=== PATIENT | male | born 1975 | race Caucasian/White ===

== ENCOUNTER → 2018-09-26 | Outpatient (CLI) | payer OTHER ==
--- NOTE | 2018-09-26 11:42 | XR ---
EXAMINATION TYPE: XR foot complete RT DATE OF EXAM: 09/26/2018 CLINICAL HISTORY: First metatarsal phalangeal joint pain and great toe pain after kicking a heavy obj ect. TECHNIQUE: Frontal, lateral, and oblique images of the right foot are obtained. COMPARISON: None FINDINGS: There is no acute fracture/dislocation evident in the right foot. The joint spaces in the right foot appear within normal limits. Small plantar enthesophyte is noted. The overlying soft tis sues demonstrate multiple punctate radiopaque foreign bodies. The first is located within the medial subcutaneous tissues distal to the first distal phalanx tuft measuring 2 mm. The second is located la teral to the fourth proximal phalanx also measuring 2 mm, this is seen at the plantar surface. IMPRESSION: There is no acute fracture or dislocation in the right foot. 2 punctate radiopaque forei gn bodies as described above adjacent to the first distal phalanx and fourth proximal phalanx.
== END ==
LOC: RADXRYALE 09:34
PROVIDERS: ATTEND Internal Medicine
DX: M79.671 Pain in right foot (principal)

== ENCOUNTER → 2020-03-11 | Outpatient (CLI) | payer BC ==
[2020-03-11 13:01] LABS: HCT 42.1 % (39.0-53.0); HGB 14.6 gm/dL (13.0-17.5); MCH 31.2 pg (25.0-35.0); MCHC 34.6 g/dL (31.0-37.0); Mean Platelet Volume 9.8; Platelet Count 147 k/uL (150-450); RBC 4.68 m/uL (4.30-5.90); RDW 13.5 % (11.5-15.5); WBC 5.3 k/uL (3.8-10.6)
== END | disposition home or self-care (01) ==
LOC: LABWHC1 12:07
PROVIDERS: ATTEND Surgery Plastic and Reconstructive Surgery
DX: Z01.818 Encounter for other preprocedural examination (principal)
CPT/HCPCS: 36415; 85027

== ENCOUNTER 2020-03-13 14:21 | Day surgery (SDC) | payer BC, OTHER ==
[2020-03-09 16:02] VITALS: BMI 38.0
--- NOTE | 2020-03-13 12:13 | P.GSHP ---
History of Present Illness H&P Date: 03/13/20 CHIEF COMPLAINT: Ventral hernia HISTORY OF PRESENT ILLNESS: The patient is a 44-year-old male who presents with a history of swelling and pain along the abdomen from a hernia. Now he presents for surgical intervention. PAST MEDICAL HISTORY: Please see list. PAST SURGICAL HISTORY: Please see list. MEDICATIONS: Please see list. ALLERGIES: Please see list. SOCIAL HISTORY: No illicit drug use FAMILY HISTORY: No reports of Crohn disease or ulcerative colitis. REVIEW OF ORGAN SYSTEMS: CONSTITUTIONAL: No reports of fevers or chills. No reports of weight loss despite prior attempts. GI: Denies any blood in stools or constipation. PHYSICAL EXAM: VITAL SIGNS: Stable GENERAL: Well-developed pleasant male in no acute distress. HEENT: No scleral icterus. Extraocular movements grossly intact. Moist buccal mucosa. NECK: Supple without lymphadenopathy. CHEST: Unlabored respirations. Equal bilateral excursions. CARDIOVASCULAR: Regular rate and rhythm. Distal 2+ pulses. ABDOMEN: Soft, nondistended. Palpable defect of the abdomen. No peritoneal signs. MUSCULOSKELETAL: No clubbing, cyanosis, or edema. ASSESSMENT: 1. Ventral hernia PLAN: 1. Recommend proceeding with robotic ventral hernia repair with mesh. 2. Benefits and risks of surgical intervention was discussed including possibility of open technique. 3. DVT prophylaxis. 4. Antibiotic prophylaxis. Past Medical History Past Medical History: GERD/Reflux Additional Past Medical History / Comment(s): hx stomach ulcers, hx septal heart defect with surgery as child., Hernia. History of Any Multi-Drug Resistant Organisms: None Reported Past Surgical History: Hernia Repair Additional Past Surgical History / Comment(s): inguinal hernia, septal heart defect surgery as child. Past Anesthesia/Blood Transfusion Reactions: No Reported Reaction Past Psychological History: No Psychological Hx Reported Smoking Status: Former smoker Past Alcohol Use History: Daily Additional Past Alcohol Use History / Comment(s): quit smoking 2005, smoked 10 years, smoked 1 ppd. drinks 2 drinks daily. Past Drug Use History: None Reported - Past Family History Mother Family Medical History: No Reported History Medications and Allergies Home Medications Medication Instructions Recorded Confirmed Type Aspirin [Adult Low Dose Aspirin EC] 81 mg PO DAILY 03/09/20 03/09/20 History Atorvastatin [Lipitor] 40 mg PO DAILY 03/09/20 03/09/20 History Ibuprofen [Motrin Ib] 400 mg PO DIRECTED PRN 03/09/20 03/09/20 History Losartan [Cozaar] 50 mg PO DAILY 03/09/20 03/09/20 History Omeprazole 20 mg PO DAILY 03/09/20 03/09/20 History gemfibroziL [Lopid] 600 mg PO BID 03/09/20 03/09/20 History Allergies Allergy/AdvReac Type Severity Reaction Status Date / Time No Known Allergies Allergy Verified 03/09/20 15:29
[~2020-03-13 14:21] MED LIST: ACETAMINOPHEN TAB 500 MG TAB PO ONE; ACETAMINOPHEN TAB 500 MG TAB PO STA; DEXAMETHASONE SOD PHOSPHATE 10 MG/ML 1 ML VIAL IV ONE; GABAPENTIN 300 MG CAP PO STA; HEPARIN SODIUM,PORCINE 5,000 UNIT/ML 1 ML VIAL SQ ONE; LACTATED RINGERS 1,000 ML IV SCH; LIDOCAINE 1% (10MG/ML) FOR IV START INTRADERMA PRN; ONDANSETRON 4 MG/2 ML VIAL IVP ONE; TAMSULOSIN 0.4 MG CAP.ER.24H PO STA; ceFAZolin 3 GM in SODIUM CHLORIDE 0.9% 100 ML IVPB ONE
[2020-03-13 14:36] VITALS: RESP 16
[2020-03-13 15:02] LABS: Basophils % (A) 1 %; Eosinophils # (A) 0.1 k/uL (0-0.7); Eosinophils % (A) 3 %; HCT 44.8 % (39.0-53.0); HGB 15.4 gm/dL (13.0-17.5); Lymphocytes # (A) 1.7 k/uL (1.0-4.8); Lymphocytes % (A) 34 %; MCHC 34.4 g/dL (31.0-37.0); MCV 90.1 fL (80.0-100.0); Mean Platelet Volume 10.2; Monocytes # (A) 0.4 k/uL (0-1.0); Monocytes % (A) 7 %; Neutrophils # (A) 2.6 k/uL (1.3-7.7); Neutrophils % (A) 53 %; Platelet Count 155 k/uL (150-450); RBC 4.98 m/uL (4.30-5.90); RDW 13.6 % (11.5-15.5); WBC 4.9 k/uL (3.8-10.6)
[2020-03-13 15:13] LABS: ALT 40 U/L (4-49); AST 37 U/L (17-59); African American GFR (CKD) >90 (>60 ml/min/1.73 sqM); Albumin 4.7 g/dL (3.5-5.0); Alkaline Phosphatase 73 U/L (38-126); Anion Gap 11 mmol/L; Blood Urea Nitrogen 14 mg/dL (9-20); Carbon Dioxide 24 mmol/L (22-30); Chloride 105 mmol/L (98-107); Glucose 101 mg/dL (74-99); Non-African American GFR(CKD) >90 (>60 ml/min/1.73 sqM); Sodium 140 mmol/L (137-145); Total Bilirubin 0.6 mg/dL (0.2-1.3); Total Protein 7.7 g/dL (6.3-8.2)
[2020-03-13] MEDS ORDERED: MIDAZOLAM 2 MG/2 ML VIAL IV ONE (15:21)
--- NOTE | 2020-03-13 15:34 | P.ANPRN ---
Procedure Note - Anesthesia - Nerve Block Performed Bilateral Transversus Abdominis Single Time Out Performed: Yes Date of Procedure: 03/13/20 Procedure Start Time: 15:29 Procedure Stop Time: 15: Location of Patient: PreOp Indication: Acute Post-Operative Pain, Requested by Surgeon Sedation Type: Sedate with meaningful contact maintained Preparation: Sterile Prep Position: Supine Catheter: None Needle Types: Pajunk Needle Gauge: 21 Ultrasound used to visualize needle placement: Yes Ultrasound used to observe medication spread: Yes Injectate: 0.5% Ropivacaine (see comment for volume) (30 ml (15 ml on each side) plus 4 mg pf decadron 2 mg on each side) Blood Aspirated: No Pain Paresthesia on Injection Noted: No Resistance on Injection: Normal Image Stored and Saved: Yes Events: Uneventful and Well Tolerated
[2020-03-13 15:35] LABS: Cholesterol 168 mg/dL (<200); HDL Cholesterol 41 mg/dL (40-60); LDL Cholesterol,Calculated 93 mg/dL (0-99); Triglycerides 172 mg/dL (<150)
[2020-03-13] MEDS ORDERED: ROPIVACAINE 5 MG/ML 30 ML VIAL ONE (17:02)
[2020-03-13] MEDS ORDERED: PROPOFOL 10 MG/ML 20 ML VIAL IV ONE (17:02)
[2020-03-13] MEDS ORDERED: LIDOCAINE 1% INJ 10MG/ML (20 ML MDV) ONE (17:02)
[2020-03-13] MEDS ORDERED: ROCURONIUM 10 MG/ML (10 ML VIAL) IV ONE (17:02)
[2020-03-13] MEDS ORDERED: KETOROLAC 15 MG/ML 1 ML VIAL ONE (17:02)
[2020-03-13] MEDS ORDERED: NEOSTIGMINE 1 MG/ML 10 ML VIAL ONE (17:02)
[2020-03-13] MEDS ORDERED: MIDAZOLAM 2 MG/2 ML VIAL ONE (17:02)
[2020-03-13] MEDS ORDERED: DEXAMETHASONE SOD PHOSPHATE 4 MG/ML 1 ML VIAL ONE (17:02)
[2020-03-13] MEDS ORDERED: GLYCOPYRROLATE 0.2 MG/ML 2 ML VIAL ONE (17:02)
[2020-03-13] MEDS ORDERED: fentaNYL (PF) 50 MCG/ML 2 ML AMP ONE (17:02)
[2020-03-13] MEDS ORDERED: SUCCINYLCHOLINE CHLORIDE 100 MG/5 ML SYR IV ONE (17:02)
[2020-03-13] MEDS ORDERED: BUPIVACAINE (PF) 0.25% 30 ML VIAL SQ ONE (17:25)
[2020-03-13] MEDS ORDERED: LACTATED RINGERS 1,000 ML IV ONE (17:26)
[2020-03-13 18:36] VITALS: TEMP 97.7
[2020-03-13] MEDS: HYDROmorphone 0.5 MG/0.5 ML SYRINGE IVP PRN ×2 (18:38→18:40)
--- NOTE | 2020-03-13 19:04 | P.OP ---
Date of Procedure: 03/13/20 Description of Procedure: SURGEON: JIHAN CORTEZ MD PREOPERATIVE DIAGNOSES: 1. Initial umbilical hernia with incarceration 2. Diabetes type 2, non-insulin dependent 3. Morbid obesity due to excess calories, BMI 37.0 4. Congenital septal heart defect 5. Hyperlipidemia 6. Gastroesophageal reflux disease POSTOPERATIVE DIAGNOSES: 1. Initial umbilical hernia with incarceration, 2 cm 2. Diabetes type 2, non-insulin dependent 3. Morbid obesity due to excess calories, BMI 37.0 4. Congenital septal heart defect 5. Hyperlipidemia 6. Gastroesophageal reflux disease 7. Recurrent incarcerated epigastric hernia, 3 cm, epigastrium OPERATION: 1. Robotic-assisted da [employer] Xi laparoscopic repair of recurrent incarcerated epigastric hernia, 3 cm, without mesh 2. Robotic-assisted da [employer] Xi laparoscopic repair of initial incarcerated umbilical hernia 2 cm without mesh ANESTHESIA: General with local ESTIMATED BLOOD LOSS: 5 mL. SPECIMENS: Incarcerated hernia sacs 2 COMPLICATIONS: None. FINDINGS: 1. Initial incarcerated umbilical hernia containing preperitoneal fat, 2 cm reduced and repaired 2. Recurrent incarcerated epigastric hernia, 3 cm also reduced and repaired with closure of falciform peritoneum INDICATIONS: The patient is a 44-year-old male who presents with initial umbilical hernia. He has previous history of epigastric ventral hernia repair. Surgical intervention with laparoscopic versus robotic and open techniques were reviewed. Placement of mesh was also reviewed. Benefits and risks were thoroughly described. Informed consent was obtained. DESCRIPTION OF PROCEDURE: The patient was brought into the operating room and laid in supine position. After general induction, the abdomen had been prepped and draped in standard sterile fashion. Ioban draping was also placed. Prior to incision, a timeout protocol was confirmed with surgical team regarding the patient's name including procedures to be performed. The robot was primed prior to the procedure. A field block using local anesthetic was placed along hernia site including the proposed port sites. Initial incision was made with an #11 blade along the left upper quadrant. A 0 degree 5 mm laparoscopic trocar entry was performed. Diagnostic laparoscopy demonstrated an incarcerated umbilical hernia. Three 8 mm trocars were placed along the left lateral abdominal wall. Placements of the ports were 15 cm from the target anatomy and 9 cm apart. The [employer] robot was previously primed, prepped and draped then docked along the right side of the patient. I then sat at the robot Da Gene Xi console where working arms of the robot were scissors, needle maintenance truck driver, and graspers placed by the personal banking assistant. An laparoscopic 12 mm port was placed along the left subxiphoid. Attention was brought to the umbilicus where an incarcerated umbilical hernia was identified containing preperitoneal fat. The incarcerated contents was reduced as the peritoneal fat was cleaned from the abdominal wall. Next, hemostasis was checked with cautery. The hernia defect of 2-cm was oversewn using nonabsorbable #1 VLOC with fascial imbrication 3. At the epigastrium, recurrent hernia at his prior hernia repair site was found with incarcerated falciform ligament. The preperitoneal fat including falciform ligament were stripped identifying 2 distinct recurrent hernias at the epigastric site totaling 3 cm in size. The incarcerated contents were reduced as the peritoneal fat was cleaned from the abdominal wall. Next, hemostasis was checked with cautery. The hernia defect of 3-cm was oversewn using nonabsorbable #1 VLOC with fascial imbrication 3. The falciform ligament site was oversewn and closed. A final endoscopic imaging was obtained. All instruments and pneumoperitoneum were evacuated from the abdominal cavity. The [employer] Xi robot was undocked from the patient. I re-scrubbed into the case for closure of incisions. Specimens were removed using an Endo Catch bag, 10 mm. The incisions were reapproximated using 4-0 Monocryl in an interrupted subcuticular fashion. Exofin liquid glue was applied to the skin after cleansing the skin with normal saline and dilute hydrogen peroxide. An abdominal binder was placed. An umbilical dressing using 4 x 4 and Tegaderm was placed. An abdominal binder was placed. At the end of the procedure, needle, sponge, and instrument count had been verified correct by surgical appliance fitter. The patient was taken to the postanesthesia care unit in stable condition. His family was pleased with the level of care. Plan - Discharge Summary Discharge Rx Participant: No New Discharge Prescriptions: New Naproxen [Naprosyn] 250 mg PO TID PRN #30 tab PRN Reason: Pain Acetaminophen Tab [Tylenol Tab] 1,000 mg PO Q6HR PRN #30 tablet PRN Reason: Pain Continue gemfibroziL [Lopid] 600 mg PO BID Losartan [Cozaar] 50 mg PO DAILY Atorvastatin [Lipitor] 40 mg PO DAILY Omeprazole 20 mg PO DAILY Aspirin [Adult Low Dose Aspirin EC] 81 mg PO DAILY Discontinued Ibuprofen [Motrin Ib] 400 mg PO DIRECTED PRN PRN Reason: Pain Discharge Medication List Aspirin [Adult Low Dose Aspirin EC] 81 mg PO DAILY 03/09/20 [History] Atorvastatin [Lipitor] 40 mg PO DAILY 03/09/20 [History] Losartan [Cozaar] 50 mg PO DAILY 03/09/20 [History] Omeprazole 20 mg PO DAILY 03/09/20 [History] gemfibroziL [Lopid] 600 mg PO BID 03/09/20 [History] Acetaminophen Tab [Tylenol Tab] 1,000 mg PO Q6HR PRN #30 tablet 03/13/20 [Rx] Naproxen [Naprosyn] 250 mg PO TID PRN #30 tab 03/13/20 [Rx] Follow up Appointment(s)/Referral(s): Jihan Cortez MD [STAFF PHYSICIAN] - 03/24/20 Patient Instructions/Handouts: *[facility] - Managing Your Pain After Surgery Without Opioids, Laparoscopic Herniorrhaphy (IP), Abdominal Binder (DC), Umbilical Hernia Repair (GEN) Activity/Diet/Wound Care/Special Instructions: Wear abdominal binder at all times except for showering No lifting over 4 pounds in 4 weeks until April 13October shower. No bath tub soaks for 2 weeks until March 27 Diet as tolerated. Use Tylenol and ibuprofen scheduled for the next 24-48 hours for best pain relief. Use ice along incisions for the today to prevent swelling. Discharge Disposition: HOME SELF-CARE
[2020-03-13] MEDS ORDERED: ACETAMINOPHEN TAB 500 MG TAB ONE (19:21)
[2020-03-13 19:40] VITALS: BP 146/85; PULSE 78
[2020-03-14 00:19] LABS: Hemoglobin A1C 5.8 % (4.0-6.0)
== END 2020-03-13 20:06 | disposition home or self-care (01) ==
LOC: OR 14:21
PROVIDERS: ATTEND Surgery Plastic and Reconstructive Surgery
DX: K42.0 Umbilical hernia with obstruction, without gangrene (principal); K43.0 Incisional hernia with obstruction, without gangrene; E78.2 Mixed hyperlipidemia; G47.33 Obstructive sleep apnea (adult) (pediatric); K21.9 Gastro-esophageal reflux disease without esophagitis; Q21.1 Atrial septal defect; E66.01 Morbid (severe) obesity due to excess calories; Z79.82 Long term (current) use of aspirin; Z79.899 Other long term (current) drug therapy; Z68.37 Body mass index [BMI] 37.0-37.9, adult; Z98.890 Other specified postprocedural states; Z87.11 Personal history of peptic ulcer disease; Z87.891 Personal history of nicotine dependence
CPT/HCPCS: 64488; 80061; 80053; 84443; 85025; 82306; 83036; 49657; 49653; J2250; J1644; J1100 ×2; J2710; J0690; J2405; J2001; J3010; J2795; J1885; J0330; J2704; J1170; 88302

== ENCOUNTER 2020-08-14 18:36 | Emergency (ER) | payer BC ==
[2020-08-14] MEDS ORDERED: guaiFENesin-DM 600/30MG 1 EACH TAB.ER.12H PO STA (19:01)
[2020-08-14] MEDS ORDERED: ACETAMINOPHEN TAB 500 MG TAB PO STA (19:01)
--- NOTE | 2020-08-14 19:29 | XR ---
EXAMINATION TYPE: XR chest 1V portable DATE OF EXAM: 08/14/2020 COMPARISON: NONE HISTORY: Cough and fever TECHNIQUE: Single view FINDINGS: Heart and mediastinum are normal. Lungs are clear. Diaphragm is normal. Bony thorax appears normal. IMPRESSION: Normal chest.
--- NOTE | 2020-08-14 19:45 | ED ---
URI HPI - General Chief Complaint: Upper Respiratory Infection Stated Complaint: Fever/no taste or smell Time Seen by Provider: 08/14/20 18:55 Source: patient Limitations: no limitations - History of Present Illness Initial Comments: 44-year-old male patient presents to the emergency department today for evaluation of cough, fever, body aches. Patient states symptoms started a couple of days ago with a dry persistent cough. States today he lost taste and smell. States he also developed a temperature at home was elevated at 102F. States he did take some ibuprofen which seemed to help. Denies any sputum production or hemoptysis. Denies chest pain. Denies significant shortness of breath. She did have an episode of vomiting this morning. Denies any diarrhea. Denies history of smoking. Denies underlying lung conditions. Patient denies any recent rash, abdominal pain, constipation, back pain, numbness, tingling, dizziness, weakness, hematuria, dysuria, urinary urgency, urinary frequency, headache, visual changes, or any other complaints. - Related Data Home Medications Medication Instructions Recorded Confirmed Aspirin [Adult Low Dose Aspirin EC] 81 mg PO DAILY 03/09/20 03/13/20 Atorvastatin [Lipitor] 40 mg PO DAILY 03/09/20 03/13/20 Losartan [Cozaar] 50 mg PO DAILY 03/09/20 03/13/20 Omeprazole 20 mg PO DAILY 03/09/20 03/13/20 gemfibroziL [Lopid] 600 mg PO BID 03/09/20 03/13/20 Previous Rx's Medication Instructions Recorded Acetaminophen Tab [Tylenol Tab] 1,000 mg PO Q6HR PRN #30 tablet 03/13/20 Naproxen [Naprosyn] 250 mg PO TID PRN #30 tab 03/13/20 Ondansetron [Zofran ODT] 4 mg PO Q8HR PRN #10 tab 08/14/20 guaiFENesin-DM 600/30MG [Mucinex 2 each PO Q12HR PRN #20 tab.er.12h 08/14/20 Dm] Allergies Allergy/AdvReac Type Severity Reaction Status Date / Time No Known Allergies Allergy Verified 08/14/20 18:41 Review of Systems ROS Statement: Those systems with pertinent positive or pertinent negative responses have been documented in the HPI. ROS Other: All systems not noted in ROS Statement are negative. Past Medical History Past Medical History: GERD/Reflux Additional Past Medical History / Comment(s): hx stomach ulcers, hx septal heart defect with surgery as child., Hernia. History of Any Multi-Drug Resistant Organisms: None Reported Past Surgical History: Hernia Repair Additional Past Surgical History / Comment(s): inguinal hernia, septal heart defect surgery as child. Past Anesthesia/Blood Transfusion Reactions: No Reported Reaction Past Psychological History: No Psychological Hx Reported Smoking Status: Former smoker Past Alcohol Use History: Daily Past Drug Use History: None Reported - Past Family History Mother Family Medical History: No Reported History General Exam Limitations: no limitations General appearance: alert, in no apparent distress, other (Physical well- developed, well-nourished adult male patient in no acute distress. Vital signs upon presentation are temperature 101.1F oral, pulse 126, respirations 20, blood pressure 168/82, pulse ox 99% on room air.) Eye exam: Present: normal appearance, PERRL, EOMI. Absent: scleral icterus, conjunctival injection, periorbital swelling ENT exam: Present: normal exam, normal oropharynx, mucous membranes moist, TM's normal bilaterally Respiratory exam: Present: normal lung sounds bilaterally. Absent: respiratory distress, wheezes, rales, rhonchi, stridor Cardiovascular Exam: Present: normal rhythm, tachycardia, normal heart sounds. Absent: systolic murmur, diastolic murmur, rubs, gallop, clicks GI/Abdominal exam: Present: soft, normal bowel sounds. Absent: distended, tenderness, guarding, rebound, rigid Neurological exam: Present: alert, oriented X3, CN II-XII intact Psychiatric exam: Present: normal affect, normal mood Skin exam: Present: warm, dry, intact, normal color. Absent: rash Course Vital Signs 08/14/20 08/14/20 18:39 19:25 Temperature 99 F 101 F H Pulse Rate 126 H Respiratory 20 Rate Blood Pressure 168/82 O2 Sat by Pulse 99 Oximetry Medical Decision Making - Medical Decision Making 44-year-old male patient presents to the emergency department today for evaluation of dry cough, fever, chills. Did have episode of vomiting this morning. Physical examination reveals clear equal lung sounds. He was febrile upon arrival at 101.1F mildly tachycardic. Oxygen saturation is within normal range. Chest x-rays negative. He did test positive for Covid 19 on the rapid test. He was given Mucinex DM and Tylenol here. I did review results with him. He was offered bamlanivimab monoclonal antibodies. Discussed the procedure and risks. Patient refused this treatment. He was informed that he must get the infusion within 10 days. He verbalized understanding. He is given prescription for mucinex and zofran. Instructed to obtain OTC vit D, Zinc, Vit C. He is instructed to follow-up with his primary care physician for recheck in 1-2 days. Return parameters discussed in detail. He verbalizes understanding and agrees with this plan. Case discussed with my attending Dr. Bateman. - Lab Data Lab Results 08/14/20 Range/Units 19:32 Coronavirus (PCR) Detected A (Not Detectd) - Radiology Data Radiology results: report reviewed, image reviewed Interpreted by me: Went to x-ray of the chest is obtained. Report is reviewed in its entirety. Impression by Dr. Rosas shows normal chest. Disposition Clinical Impression: COVID-19 Disposition: HOME SELF-CARE Condition: Good Instructions (If sedation given, give patient instructions): Coronavirus Disease 2019 (COVID-19) Additional Instructions: Take medications as directed. Alternate Tylenol and Motrin to control fevers. Obtain pnni-rte-heayeoy vitamins including vitamin D 3, vitamin C, and zinc as he does have shown some promise and helping with symptoms. You must quarantine for a total of 10 days after symptom onset or until symptoms clear. Follow-up with your primary care physician for recheck in 1-2 days. Return to the emergency department for any new, worsening, or concerning symptoms. Prescriptions: guaiFENesin-DM 600/30MG [Mucinex Dm] 2 each PO Q12HR PRN #20 tab.er.12h PRN Reason: Cough Ondansetron [Zofran ODT] 4 mg PO Q8HR PRN #10 tab PRN Reason: Nausea Is patient prescribed a controlled substance at d/c from ED?: No Referrals: Luis Lund MD [Primary Care Provider] - 1-2 days Time of Disposition: 20:06
[2020-08-14 20:33] VITALS: BP 159/101; PULSE 104; RESP 16; TEMP 101.4
== END 2020-08-14 20:33 | disposition home or self-care (01) ==
LOC: EC 18:36
DX: U07.1 COVID-19 (principal); K21.9 Gastro-esophageal reflux disease without esophagitis; Z87.891 Personal history of nicotine dependence
CPT/HCPCS: 71045; 87635; 99283

== ENCOUNTER 2020-08-20 11:15 | Emergency (ER) | payer BC ==
[2020-08-20 11:27] VITALS: BP 112/69; TEMP 98.5
[2020-08-20 12:25] VITALS: RESP 16
--- NOTE | 2020-08-20 12:42 | ED ---
General Adult HPI - General Chief complaint: Shortness of Breath Stated complaint: revisit - Covid+, loss of appetite Time Seen by Provider: 08/20/20 11:25 Source: patient, RN notes reviewed, old records reviewed Mode of arrival: ambulatory Limitations: no limitations - History of Present Illness Initial comments: This is a 44-year-old male who presents emergency Department complaining of being diagnosed with COVID on Monday patient states symptoms started . Patient states since then he's been extremely fatigued and short of breath any exertion. Patient denies chest pain or difficulty breathing. Patient denies lightheadedness dizziness or near syncopal episode. Patient denies abdominal pain patient denies nausea vomiting diarrhea. Patient denies feeling as though he has been febrile or having the chills. Patient denies any injury or trauma. - Related Data Home Medications Medication Instructions Recorded Confirmed Aspirin [Adult Low Dose Aspirin EC] 81 mg PO DAILY 03/09/20 08/20/20 Atorvastatin [Lipitor] 40 mg PO DAILY 03/09/20 08/20/20 Omeprazole 20 mg PO DAILY 03/09/20 08/20/20 gemfibroziL [Lopid] 600 mg PO BID 03/09/20 08/20/20 Cyclobenzaprine [Flexeril] 5 - 10 mg PO HS PRN 08/20/20 08/20/20 Losartan/Hydrochlorothiazide 1 tab PO DAILY 08/20/20 08/20/20 [Losartan-Hctz 100-25 mg Tab] guaiFENesin-DM 600/30MG [Mucinex 2 tab PO Q12HR PRN 08/20/20 08/20/20 Dm] Previous Rx's Medication Instructions Recorded Ondansetron [Zofran ODT] 4 mg PO Q8HR PRN #10 tab 08/14/20 Allergies Allergy/AdvReac Type Severity Reaction Status Date / Time No Known Allergies Allergy Verified 08/20/20 12:47 Review of Systems ROS Statement: Those systems with pertinent positive or pertinent negative responses have been documented in the HPI. ROS Other: All systems not noted in ROS Statement are negative. Past Medical History Past Medical History: GERD/Reflux Additional Past Medical History / Comment(s): hx stomach ulcers, hx septal heart defect with surgery as child., Hernia. History of Any Multi-Drug Resistant Organisms: None Reported Past Surgical History: Hernia Repair Additional Past Surgical History / Comment(s): inguinal hernia, septal heart defect surgery as child. Past Anesthesia/Blood Transfusion Reactions: No Reported Reaction Past Psychological History: No Psychological Hx Reported Smoking Status: Former smoker Past Alcohol Use History: Occasional Past Drug Use History: None Reported - Past Family History Mother Family Medical History: No Reported History General Exam - General Exam Comments Initial Comments: GENERAL: Patient is well-developed and well-nourished. Patient is nontoxic and well- hydrated and is in mild distress. ENT: Neck is soft and supple. No significant lymphadenopathy is noted. Oropharynx is clear. Moist mucous membranes. Neck has full range of motion without eliciting any pain. EYES: The sclera were anicteric and conjunctiva were pink and moist. Extraocular movements were intact and pupils were equal round and reactive to light. Eyelids were unremarkable. PULMONARY: Unlabored respirations. Good breath sounds bilaterally. No audible rales rhonchi or wheezing was noted. CARDIOVASCULAR: There is a regular rate and rhythm without any murmurs gallops or rubs. ABDOMEN: Soft and nontender with normal bowel sounds. SKIN: Skin is clear with no lesions or rashes and otherwise unremarkable. NEUROLOGIC: Patient is alert and oriented x3. Cranial nerves II through XII are grossly intact. Motor and sensory are also intact. Normal speech, volume and content. Symmetrical smile. MUSCULOSKELETAL: Normal extremities with adequate strength and full range of motion. No lower extremity swelling or edema. No calf tenderness. LYMPHATICS: No significant lymphadenopathy is noted PSYCHIATRIC: Normal psychiatric evaluation. Limitations: no limitations Course Vital Signs 08/20/20 08/20/20 08/20/20 11:24 12:22 12:25 Temperature 98.5 F Pulse Rate 100 Respiratory 18 16 Rate Blood Pressure 112/69 O2 Sat by Pulse 94 L 95 Oximetry 08/20/20 12:49 Temperature Pulse Rate Respiratory Rate Blood Pressure O2 Sat by Pulse 89 L Oximetry Medical Decision Making - Medical Decision Making EKG shows sinus tachycardia at 102 bpm MA interval 282 QRS is 92 QT interval 342 QTC is 445. Patient's EKG shows no ST segment elevation or depression. Patient's x-ray shows COVID pneumonia. Patient will be getting monoclonal antibodies. Patient wants to try going home with this monoclonal antibodies in his system and if he gets worse he will return. - Lab Data Result diagrams: 08/20/20 13:04 08/20/20 13:04 Lab Results 08/20/20 08/20/20 Range/Units 13:04 13:04 WBC 8.1 (3.8-10.6) k/uL RBC 5.45 (4.30-5.90) m/uL Hgb 16.6 (13.0-17.5) gm/dL Hct 46.9 (39.0-53.0) % MCV 86.0 (80.0-100.0) fL MCH 30.4 (25.0-35.0) pg MCHC 35.4 (31.0-37.0) g/dL RDW 13.4 (11.5-15.5) % Plt Count 139 L (150-450) k/uL MPV 9.9 Neutrophils % 84 % Lymphocytes % 9 % Monocytes % 5 % Eosinophils % 0 % Basophils % 0 % Neutrophils # 6.8 (1.3-7.7) k/uL Lymphocytes # 0.7 L (1.0-4.8) k/uL Monocytes # 0.4 (0-1.0) k/uL Eosinophils # 0.0 (0-0.7) k/uL Basophils # 0.0 (0-0.2) k/uL Sodium 134 L (137-145) mmol/L Potassium 3.9 (3.5-5.1) mmol/L Chloride 95 L (98-107) mmol/L Carbon Dioxide 24 (22-30) mmol/L Anion Gap 15 mmol/L BUN 39 H (9-20) mg/dL Creatinine 1.73 H (0.66-1.25) mg/dL Est GFR (CKD-EPI)AfAm 54 (>60 ml/min/1.73 sqM) Est GFR (CKD-EPI)NonAf 47 (>60 ml/min/1.73 sqM) Glucose 130 H (74-99) mg/dL Calcium 8.3 L (8.4-10.2) mg/dL Total Bilirubin 0.9 (0.2-1.3) mg/dL AST 56 (17-59) U/L ALT 38 (4-49) U/L Alkaline Phosphatase 72 (38-126) U/L Total Protein 7.1 (6.3-8.2) g/dL Albumin 4.1 (3.5-5.0) g/dL Disposition Clinical Impression: Pneumonia due to COVID-19 virus Disposition: HOME SELF-CARE Instructions (If sedation given, give patient instructions): Coronavirus Disease 2019 (COVID-19) Is patient prescribed a controlled substance at d/c from ED?: No Referrals: Luis Lund MD [Primary Care Provider] - 1-2 days Time of Disposition: 14:24
[2020-08-20 13:23] LABS: Basophils % (A) 0 %; Eosinophils % (A) 0 %; HCT 46.9 % (39.0-53.0); HGB 16.6 gm/dL (13.0-17.5); Lymphocytes # (A) 0.7 k/uL (1.0-4.8); Lymphocytes % (A) 9 %; MCH 30.4 pg (25.0-35.0); MCHC 35.4 g/dL (31.0-37.0); Mean Platelet Volume 9.9; Monocytes # (A) 0.4 k/uL (0-1.0); Monocytes % (A) 5 %; Neutrophils # (A) 6.8 k/uL (1.3-7.7); Neutrophils % (A) 84 %; Platelet Count 139 k/uL (150-450); RBC 5.45 m/uL (4.30-5.90); RDW 13.4 % (11.5-15.5); WBC 8.1 k/uL (3.8-10.6)
[2020-08-20 13:25] LABS: Albumin 4.1 g/dL (3.5-5.0); Calcium 8.3 mg/dL (8.4-10.2); Potassium 3.9 mmol/L (3.5-5.1); Total Bilirubin 0.9 mg/dL (0.2-1.3); Total Protein 7.1 g/dL (6.3-8.2)
[2020-08-20] MEDS ORDERED: SODIUM CHLORIDE 0.9% 1,000 ML IV ONE (13:38)
--- NOTE | 2020-08-20 14:22 | XR ---
EXAMINATION TYPE: XR chest 2V DATE RECEIVED ON: 08/20/2020 DATE PERFORMED: 08/20/2020 COMPARISON: 08/14/2020 HISTORY: Difficulty breathing TECHNIQUE: Frontal and lateral views of the chest are obtained. FINDINGS: The heart size is normal. The pulmonary vasculature is normal. Nonspecific subsegmental infiltrates are present bilaterally atypical pneumonia could be considered. IMPRESSION: 1. Scattered bilateral infiltrates are nonspecific but can be compatible with atypical pneumonia in t he proper clinical setting.
[2020-08-20] MEDS ORDERED: BAMLANIVIMAB 700 MG in SODIUM CHLORIDE 0.9% 50 ML IVPB ONE (15:30)
[2020-08-20 17:46] VITALS: PULSE 91
== END 2020-08-20 17:46 | disposition home or self-care (01) ==
LOC: EC 11:15
DX: U07.1 COVID-19 (principal); J12.82 Pneumonia due to coronavirus disease 2019; K21.9 Gastro-esophageal reflux disease without esophagitis; Z87.891 Personal history of nicotine dependence
CPT/HCPCS: 36415; 93005; 80053; 85025; 71046; 99284; 96360; Q0239; 96376

== ENCOUNTER 2020-08-24 18:51 | Inpatient (IN) | payer BC ==
[2020-08-24] MEDS ORDERED: ALBUTEROL HFA INHALER INHALATION PRN (19:21)
[2020-08-24] MEDS ORDERED: ALBUTEROL HFA INHALER INHALATION STA (19:21)
--- NOTE | 2020-08-24 19:24 | ED ---
General Adult HPI - General Chief complaint: Shortness of Breath Stated complaint: Covid+, SOB Time Seen by Provider: 08/24/20 19:16 Source: patient, RN notes reviewed Mode of arrival: ambulatory Limitations: no limitations - History of Present Illness Initial comments: Patient is a pleasant 44-year-old male presenting to the emergency Department with cough and shortness of breath. Onset of symptoms was 11 days ago. Patient was tested positive for covid around 10 days ago. Patient has not productive cough. Patient is fatigued. Patient has fever chills and myalgia. Occasional diarrhea. Decreased appetite. Patient has had diminished swelling taste however that seems to be improving. - Related Data Home Medications Medication Instructions Recorded Confirmed Aspirin [Adult Low Dose Aspirin EC] 81 mg PO DAILY 03/09/20 08/24/20 Atorvastatin [Lipitor] 40 mg PO DAILY 03/09/20 08/24/20 Omeprazole 20 mg PO DAILY 03/09/20 08/24/20 gemfibroziL [Lopid] 600 mg PO BID 03/09/20 08/24/20 Cyclobenzaprine [Flexeril] 5 - 10 mg PO HS PRN 08/20/20 08/24/20 Losartan/Hydrochlorothiazide 1 tab PO DAILY 08/20/20 08/24/20 [Losartan-Hctz 100-25 mg Tab] guaiFENesin-DM 600/30MG [Mucinex 2 tab PO Q12HR PRN 08/20/20 08/24/20 Dm] Ibuprofen [Motrin Ib] 200 mg PO Q8H PRN 08/24/20 08/24/20 Previous Rx's Medication Instructions Recorded Ondansetron [Zofran ODT] 4 mg PO Q8HR PRN #10 tab 08/14/20 Allergies Allergy/AdvReac Type Severity Reaction Status Date / Time No Known Allergies Allergy Verified 08/24/20 20:40 Review of Systems ROS Statement: Those systems with pertinent positive or pertinent negative responses have been documented in the HPI. ROS Other: All systems not noted in ROS Statement are negative. Constitutional: Reports: fever, chills Eyes: Denies: eye pain ENT: Denies: ear pain Respiratory: Reports: cough, dyspnea Cardiovascular: Denies: chest pain Endocrine: Reports: fatigue Gastrointestinal: Reports: nausea, diarrhea. Denies: abdominal pain Genitourinary: Denies: dysuria Musculoskeletal: Denies: back pain Skin: Denies: rash Neurological: Denies: weakness Past Medical History Past Medical History: GERD/Reflux Additional Past Medical History / Comment(s): hx stomach ulcers, hx septal heart defect with surgery as child., Hernia. History of Any Multi-Drug Resistant Organisms: None Reported Past Surgical History: Hernia Repair Additional Past Surgical History / Comment(s): inguinal hernia, septal heart defect surgery as child. Past Anesthesia/Blood Transfusion Reactions: No Reported Reaction Past Psychological History: No Psychological Hx Reported Smoking Status: Former smoker Past Alcohol Use History: Occasional Past Drug Use History: None Reported - Past Family History Mother Family Medical History: No Reported History General Exam Limitations: no limitations General appearance: alert, in no apparent distress Head exam: Present: normocephalic Eye exam: Present: normal appearance Neck exam: Present: normal inspection. Absent: tenderness, meningismus Respiratory exam: Present: normal lung sounds bilaterally Cardiovascular Exam: Present: tachycardia GI/Abdominal exam: Present: soft. Absent: tenderness Extremities exam: Present: normal inspection. Absent: pedal edema, calf tende rness Neurological exam: Present: alert Psychiatric exam: Present: normal affect, normal mood Skin exam: Present: normal color Course Vital Signs 08/24/20 08/24/20 18:56 20:02 Temperature 98.1 F 98.1 F Pulse Rate 118 H 110 H Respiratory 40 H 22 Rate Blood Pressure 116/74 138/81 O2 Sat by Pulse 86 L 95 Oximetry EKG Findings - EKG Comments: EKG Findings:: Sinus tachycardia 111. UT 172. QRS 108. QT 324. QTC 440. We'll axis. Normal QRS. No acute ST change. Medical Decision Making - Medical Decision Making Patient reevaluated. Patient updated. Case was discussed in detail with Dr. Monzon, covering for Dr. Lund, who will admit. He does request consult with Dr. Bazzi. Case was discussed with Dr. Reynolds and who would consult. He does request Decadron and Remdisivir. Pharmacist notified. - Lab Data Result diagrams: 08/24/20 18:58 08/24/20 18:58 Lab Results 08/24/20 08/24/20 08/24/20 Range/Units 18:58 18:58 18:58 WBC 11.1 H (3.8-10.6) k/uL RBC 5.13 (4.30-5.90) m/uL Hgb 15.4 (13.0-17.5) gm/dL Hct 43.5 (39.0-53.0) % MCV 84.8 (80.0-100.0) fL MCH 30.1 (25.0-35.0) pg MCHC 35.5 (31.0-37.0) g/dL RDW 13.1 (11.5-15.5) % Plt Count 253 (150-450) k/uL MPV 9.5 Neutrophils % 87 % Lymphocytes % 7 % Monocytes % 3 % Eosinophils % 2 % Basophils % 0 % Neutrophils # 9.7 H (1.3-7.7) k/uL Lymphocytes # 0.8 L (1.0-4.8) k/uL Monocytes # 0.3 (0-1.0) k/uL Eosinophils # 0.2 (0-0.7) k/uL Basophils # 0.0 (0-0.2) k/uL PT 11.6 (9.0-12.0) sec INR 1.1 (<1.2) APTT 22.9 (22.0-30.0) sec D-Dimer 1.20 H (<0.60) mg/L FEU Sodium 132 L (137-145) mmol/L Potassium 3.7 (3.5-5.1) mmol/L Chloride 95 L (98-107) mmol/L Carbon Dioxide 27 (22-30) mmol/L Anion Gap 10 mmol/L BUN 28 H (9-20) mg/dL Creatinine 1.19 (0.66-1.25) mg/dL Est GFR (CKD-EPI)AfAm 85 (>60 ml/min/1.73 sqM) Est GFR (CKD-EPI)NonAf 73 (>60 ml/min/1.73 sqM) Glucose 134 H (74-99) mg/dL Plasma Lactic Acid Tip (0.7-2.0) mmol/L Calcium 8.1 L (8.4-10.2) mg/dL Magnesium 2.3 (1.6-2.3) mg/dL Total Bilirubin 1.0 (0.2-1.3) mg/dL AST 50 (17-59) U/L ALT 65 H (4-49) U/L Alkaline Phosphatase 82 (38-126) U/L Lactate Dehydrogenase 1678 H (313-618) U/L C-Reactive Protein 229.3 H (<10.0) mg/L Total Protein 6.8 (6.3-8.2) g/dL Albumin 3.7 (3.5-5.0) g/dL 08/24/20 Range/Units 18:58 WBC (3.8-10.6) k/uL RBC (4.30-5.90) m/uL Hgb (13.0-17.5) gm/dL Hct (39.0-53.0) % MCV (80.0-100.0) fL MCH (25.0-35.0) pg MCHC (31.0-37.0) g/dL RDW (11.5-15.5) % Plt Count (150-450) k/uL MPV Neutrophils % % Lymphocytes % % Monocytes % % Eosinophils % % Basophils % % Neutrophils # (1.3-7.7) k/uL Lymphocytes # (1.0-4.8) k/uL Monocytes # (0-1.0) k/uL Eosinophils # (0-0.7) k/uL Basophils # (0-0.2) k/uL PT (9.0-12.0) sec INR (<1.2) APTT (22.0-30.0) sec D-Dimer (<0.60) mg/L FEU Sodium (137-145) mmol/L Potassium (3.5-5.1) mmol/L Chloride (98-107) mmol/L Carbon Dioxide (22-30) mmol/L Anion Gap mmol/L BUN (9-20) mg/dL Creatinine (0.66-1.25) mg/dL Est GFR (CKD-EPI)AfAm (>60 ml/min/1.73 sqM) Est GFR (CKD-EPI)NonAf (>60 ml/min/1.73 sqM) Glucose (74-99) mg/dL Plasma Lactic Acid Tip 1.8 (0.7-2.0) mmol/L Calcium (8.4-10.2) mg/dL Magnesium (1.6-2.3) mg/dL Total Bilirubin (0.2-1.3) mg/dL AST (17-59) U/L ALT (4-49) U/L Alkaline Phosphatase (38-126) U/L Lactate Dehydrogenase (313-618) U/L C-Reactive Protein (<10.0) mg/L Total Protein (6.3-8.2) g/dL Albumin (3.5-5.0) g/dL - Radiology Data Radiology results: image reviewed Critical Care Time Critical Care Time: Yes Total Critical Care Time: 33 Disposition Clinical Impression: Pneumonia due to COVID-19 virus, Hypoxia Disposition: ADMITTED IP TO THIS [facility] Condition: Serious Is patient prescribed a controlled substance at d/c from ED?: No Referrals: Luis Lund MD [Primary Care Provider] - 1-2 days Decision Time: 20:39
[2020-08-24 19:39] LABS: Basophils % (A) 0 %; Eosinophils # (A) 0.2 k/uL (0-0.7); Eosinophils % (A) 2 %; HCT 43.5 % (39.0-53.0); HGB 15.4 gm/dL (13.0-17.5); Lymphocytes # (A) 0.8 k/uL (1.0-4.8); Lymphocytes % (A) 7 %; MCH 30.1 pg (25.0-35.0); MCHC 35.5 g/dL (31.0-37.0); MCV 84.8 fL (80.0-100.0); Mean Platelet Volume 9.5; Monocytes # (A) 0.3 k/uL (0-1.0); Monocytes % (A) 3 %; Neutrophils # (A) 9.7 k/uL (1.3-7.7); Neutrophils % (A) 87 %; Platelet Count 253 k/uL (150-450); RBC 5.13 m/uL (4.30-5.90); RDW 13.1 % (11.5-15.5); WBC 11.1 k/uL (3.8-10.6)
[2020-08-24 19:52] LABS: INR 1.1 (<1.2); Partial Thromboplastin Time 22.9 sec (22.0-30.0); Prothrombin Time 11.6 sec (9.0-12.0)
[2020-08-24 19:54] LABS: D-Dimer 1.2 mg/L FEU (<0.60)
[2020-08-24 19:58] LABS: Albumin 3.7 g/dL (3.5-5.0); Calcium 8.1 mg/dL (8.4-10.2); Magnesium 2.3 mg/dL (1.6-2.3); Potassium 3.7 mmol/L (3.5-5.1); Total Protein 6.8 g/dL (6.3-8.2)
[2020-08-24] MEDS ORDERED: ALBUTEROL HFA INHALER INHALATION SCH (20:00)
[2020-08-24 20:19] LABS: C Reactive Protein 229.3 mg/L (<10.0)
--- NOTE | 2020-08-24 20:43 | XR ---
EXAMINATION TYPE: XR chest 1V portable DATE OF EXAM: 08/24/2020 COMPARISON: 08/20/2020. HISTORY: Follow-up shortness of breath. TECHNIQUE: Single frontal view of the chest is obtained. FINDINGS: There are persistent mild perihilar and bibasilar streaky opacities, slightly less promine nt compared to the prior study. No pleural effusion, or pneumothorax seen. The cardiac silhouette si ze is within normal limits. Median sternotomy again noted. The osseous structures are intact. IMPRESSION: Persistent mild perihilar/bibasilar opacities, slightly decreased prominence. Again may represent atypical infection.
[2020-08-24] MEDS ORDERED: NALOXONE 0.4 MG/ML 1 ML VIAL IV PRN (20:47)
[2020-08-24] MEDS ORDERED: SODIUM CHLORIDE 0.9% 1,000 ML IV STA (20:49)
--- NOTE | 2020-08-24 21:28 | CT ---
EXAMINATION TYPE: CT angio chest DATE OF EXAM: 08/24/2020 9:14 PM COMPARISON: Same-day radiograph. HISTORY: Dyspnea, Covid + CT DLP: 745.4 mGycm Automated exposure control for dose reduction was used. CONTRAST: CTA scan of the thorax is performed with IV Contrast, patient injected with 100 mL of Isovue 370, pul monary embolism protocol. MIP images are created and reviewed. FINDINGS: LUNGS: The bilateral diffuse moderate to marked patchy groundglass opacities. No significant pleural effusion or pneumothorax. MEDIASTINUM: There is satisfactory enhancement of the pulmonary artery and its branches, there is no CT evidence for pulmonary embolism. There are scattered small mediastinal lymph nodes, likely reacti ve. No pericardial effusion is seen. OTHER: No additional significant abnormality is seen. Diffuse hepatic steatosis is seen. IMPRESSION: BILATERAL DIFFUSE PATCHY GROUNDGLASS OPACITIES, COMPATIBLE WITH COVID PNEUMONIA. NO PE.
[2020-08-24] MEDS ORDERED: REMDESIVIR 200 MG in SODIUM CHLORIDE 0.9% 250 ML IVPB ONE (22:00)
[2020-08-24] MEDS: DEXAMETHASONE SOD PHOSPHATE 10 MG/ML 1 ML VIAL IV SCH (22:09)
[2020-08-24] MEDS: FAMOTIDINE 20 MG TAB PO SCH (22:10)
[2020-08-24] MEDS: CHOLECALCIFEROL 25 MCG (1000 IU) TABLET PO SCH (22:10)
[2020-08-24] MEDS: ENOXAPARIN 40 MG/0.4 ML SYRINGE SQ SCH (22:10)
[2020-08-24] MEDS: ASCORBIC ACID 500 MG TAB PO SCH (22:10)
[2020-08-24] MEDS: ZINC SULFATE 220 MG CAP PO SCH (22:20)
[2020-08-24] MEDS: ACETAMINOPHEN TAB 500 MG TAB PO PRN (22:20)
[2020-08-25] MEDS: ALBUTEROL HFA INHALER INHALATION SCH ×4 (04:04→19:42)
[2020-08-25 05:15] LABS: Ferritin 1451.3 ng/mL (22.0-322.0)
[2020-08-25] MEDS: FAMOTIDINE 20 MG TAB PO SCH ×2 (08:13→20:48)
[2020-08-25] MEDS: ASCORBIC ACID 500 MG TAB PO SCH ×2 (08:13→20:48)
--- NOTE | 2020-08-25 09:45 | P.CNPUL ---
History of Present Illness Consult date: 08/25/20 Reason for consult: pneumonia History of present illness: 44-year-old male patient who came into the emergency department today because of worsening shortness of breath. He was diagnosed having covid 19 on 08/14/2020. At that time patient came into the emergency with cough, fever, body aches, and symptoms were going on for couple of days and the patient was having dry persistent cough and he had lost his taste and smell. His temperature was as high as 102 and was taking ibuprofen which was helping. Denied having any significant shortness of breath. No history of smoking. 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 He also has history of hypertension and hyperlipidemia. He was in the emergency on 08/20/2020 complaining of fatigue and some degree of shortness of breath. He denies having any chest pain. No altered mentation. No syncope. No nausea or vomiting or abdominal pain. Patient was seen by emergency department physician the patient was given monoclonal antibodies (BAM) and the patient was discharged home. The patient ca me back today again to the emergency room because of worsening shortness of breath. The patient was hypoxic with pulse ox in the low 80s on room in oxygen. Chest x-ray showed diffuse but the pulmonary infiltrates but also present on the earlier chest x-ray on 08/20/2020 and there were absent on the initial chest x-ray that was done on 08/14/2020. The patient is currently on 2 L by nasal cannula with a pulse ox of 95%. Initial pulse ox was 86% on room air oxygen. The patient has d-dimer of 1.2. Sodium is at 132 with a chloride of 95. Platelet count is 253. The patient also had a LDH level of 1678 with a CRP of 229 and mild transaminitis with an AST of 50, LDL of 65 and a bilirubin of 1.0. Glucose is 134. Review of Systems Constitutional: Reports fatigue, Reports fever, Reports lethargy, Reports poor appetite, Reports weakness Eyes: denies as per HPI, denies blurred vision, denies bulging eye, denies decreased vision, denies diplopia, denies discharge, denies dry eye, denies irritation, denies itching, denies pain, denies photophobia, denies loss of peripheral vision, denies loss of vision, denies tunnel vision/blind spots Ears: deny: decreased hearing, ear discharge, earache, tinnitus Ears, nose, mouth and throat: Reports as per HPI Breasts: absent: as per HPI, gynecomastia Cardiovascular: Reports as per HPI, Reports decreased exercise tolerance, Reports dyspnea on exertion Respiratory: Reports cough, Reports dyspnea Gastrointestinal: Reports as per HPI Genitourinary: Reports as per HPI Musculoskeletal: Reports as per HPI Musculoskeletal: absent: ankle pain, ankle stiffness, ankle swelling, as per HPI, elbow pain, elbow stiffness, elbow swelling, foot pain, foot stiffness, foot swelling, hand pain, hand stiffness, hand swelling, hip pain, hip stiffness, hip swelling, knee pain, knee stiffness, knee swelling, shoulder pain, shoulder stiffness, shoulder swelling, wrist pain, wrist stiffness, wrist swelling Integumentary: Reports as per HPI Neurological: Reports as per HPI Psychiatric: Reports as per HPI Endocrine: Reports as per HPI Hematologic/Lymphatic: Reports as per HPI Past Medical History Past Medical History: GERD/Reflux Additional Past Medical History / Comment(s): hx stomach ulcers, hx septal heart defect with surgery as child., Hernia. History of Any Multi-Drug Resistant Organisms: None Reported Past Surgical History: Hernia Repair Additional Past Surgical History / Comment(s): inguinal hernia, septal heart defect surgery as child. Past Anesthesia/Blood Transfusion Reactions: No Reported Reaction Past Psychological History: No Psychological Hx Reported Smoking Status: Former smoker Past Alcohol Use History: Occasional Past Drug Use History: None Reported - Past Family History Mother Family Medical History: No Reported History Medications and Allergies Home Medications Medication Instructions Recorded Confirmed Type Aspirin [Adult Low Dose Aspirin EC] 81 mg PO DAILY 03/09/20 08/24/20 History Atorvastatin [Lipitor] 40 mg PO DAILY 03/09/20 08/24/20 History Omeprazole 20 mg PO DAILY 03/09/20 08/24/20 History gemfibroziL [Lopid] 600 mg PO BID 03/09/20 08/24/20 History Ondansetron [Zofran ODT] 4 mg PO Q8HR PRN #10 tab 08/14/20 08/24/20 Rx Cyclobenzaprine [Flexeril] 5 - 10 mg PO HS PRN 08/20/20 08/24/20 History Losartan/Hydrochlorothiazide 1 tab PO DAILY 08/20/20 08/24/20 History [Losartan-Hctz 100-25 mg Tab] guaiFENesin-DM 600/30MG [Mucinex 2 tab PO Q12HR PRN 08/20/20 08/24/20 History Dm] Ibuprofen [Motrin Ib] 200 mg PO Q8H PRN 08/24/20 08/24/20 History Allergies Allergy/AdvReac Type Severity Reaction Status Date / Time No Known Allergies Allergy Verified 08/24/20 20:40 Physical Exam Vitals: Vital Signs Temp Pulse Resp BP Pulse Ox 08/25/20 08:00 98.9 F 08/25/20 06:20 97.9 F 85 20 135/86 93 L 08/25/20 04:56 86 19 128/81 91 L 08/25/20 02:39 93 16 08/25/20 01:37 98.6 F 85 14 123/86 93 L 08/24/20 22:14 100.0 F H 101 H 22 132/90 92 L 08/24/20 20:02 98.1 F 110 H 22 138/81 95 08/24/20 18:56 98.1 F 118 H 40 H 116/74 86 L Intake and Output 08/24/20 08/25/20 08/25/20 22:59 06:59 14:59 Other: Weight 122.47 kg GENERAL: Patient is well-developed and well-nourished. Patient is nontoxic and well- hydrated and is in mild distress. the patient is currently on a liters of oxygen by nasal cannula ENT: Neck is soft and supple. No significant lymphadenopathy is noted. Oropharynx is clear. Moist mucous membranes. Neck has full range of motion without eliciting any pain. EYES: The sclera were anicteric and conjunctiva were pink and moist. Extraocular movements were intact and pupils were equal round and reactive to light. Eyelids were unremarkable. PULMONARY: Unlabored respirations. Good breath sounds bilaterally. there are crackles in lung bases bilaterally. CARDIOVASCULAR: There is a regular rate and rhythm without any murmurs gallops or rubs. ABDOMEN: Soft and nontender with normal bowel sounds. SKIN: Skin is clear with no lesions or rashes and otherwise unremarkable. NEUROLOGIC: Patient is alert and oriented x3. Cranial nerves II through XII are grossly i ntact. Motor and sensory are also intact. Normal speech, volume and content. Symmetrical smile. MUSCULOSKELETAL: Normal extremities with adequate strength and full range of motion. No lower extremity swelling or edema. No calf tenderness. LYMPHATICS: No significant lymphadenopathy is noted PSYCHIATRIC: Normal psychiatric evaluation. Results - Laboratory Findings CBC and BMP: 08/24/20 18:58 08/24/20 18:58 PT/INR, D-dimer PT 11.6 sec (9.0-12.0) 08/24/20 18:58 INR 1.1 (<1.2) 08/24/20 18:58 D-Dimer 1.20 mg/L FEU (<0.60) H 08/24/20 18:58 Abnormal lab findings: Abnormal Labs 08/24/20 08/24/20 08/24/20 18:58 18:58 18:58 WBC 11.1 H Neutrophils # 9.7 H Lymphocytes # 0.8 L D-Dimer 1.20 H Sodium 132 L Chloride 95 L BUN 28 H Glucose 134 H Calcium 8.1 L Ferritin 1451.3 H ALT 65 H Lactate Dehydrogenase 1678 H C-Reactive Protein 229.3 H Procalcitonin 08/24/20 18:58 WBC Neutrophils # Lymphocytes # D-Dimer Sodium Chloride BUN Glucose Calcium Ferritin ALT Lactate Dehydrogenase C-Reactive Protein Procalcitonin 0.60 H - Diagnostic Findings Chest x-ray: image reviewed CT scan - chest: image reviewed Assessment and Plan Plan: 1 acute covert 19-related pneumonia with diffuse bilateral pulmonary infiltrates and secondary shortness of breath and hypoxemia, the patient's diagnosis established on 08/14/2020. At that time the patient was seen in the hospital emergency department and the patient had a normal chest x-ray. He was seen again the emergency on 08/20/2020 and I think he was given multiple antibiotics and he was discharged home. Subsequently, the patient presents back to the ED with worsening shortness of breath. Inflammatory markers are elevated with LDH and CRP levels being quite high. Recurrent d-dimer is at 1.2 2 acute hypoxic respiratory failure currently on 2 L oxygen by nasal cannula 3 History of congenital heart disease, possibly ASD with surgical closure. The patient has a thoracotomy scar 4 hypertension 5 hyperlipidemia 6 history of peptic ulcer disease and acid reflux Plan Start the patient Decadron 6 mg on a daily basis IV Lovenox 40 mg Subcutaneously every 24 hours for DVT prophylaxis May consider Remdesivir. The patient seems to be out of the window for this treatment. He is past 7 days since this time of the diagnosis monitor inflammatory markers Monitor the oxygenation, currently on 2 L Admit the patient to the hospital and will continue to follow.
--- NOTE | 2020-08-25 17:22 | P.HPIM ---
History of Present Illness H&P Date: 08/25/20 Chief Complaint: Shortness of breath Mr. Robbins is a 44-year-old male with a past medical history of hypertension, GERD, congenital atrial septal defect fixed status post surgery as a child coming in to the emergency department with a chief complaint of difficulty in breathing. Patient states that he was diagnosed with covid 19 on the of this month. He states all his household members have been tested positive. Since then he had couple of ER visits on 08/14 and 08/20 for ongoing shortness of breath. He was given monoclonal antibodies and discharged home. Patient has history of atrial septal defect and was corrected with surgery when he was a child. Today when the patient came into the ER he was having more difficulty in breathing and his pulse ox at the time of admission was 86 on room air. He was also tachycardic and had a fever of 100. The patient had a chest x-ray showing diffuse pulmonary infiltrates. So the patient was admitted for further [facility] the [facility]. In the ER patient had blood work done showing white count of 11.1, hemoglobin 15.4, platelets 253. D-dimer 1.20, sodium 132, potassium 3.5, chloride 95, Bicarb 27, BNP 28, creatinine 1.19. Inflammatory markers, ferritin 1451, CRP 229, pro calcitonin 0.60, LDH 1678. He had an EKG showing sinus tachycardia. Patient also got CTA of the chest showing bilateral diffuse patchy groundglass o pacities compatible with Covid pneumonia. Review of Systems REVIEW OF SYSTEMS: CONSTITUTIONAL: Fatigue, malaise and generalized weakness HEENT: No recent visual problems or hearing problems. Denied any sore throat. CARDIOVASCULAR: No orthopnea, PND, no palpitations, no syncope. PULMONARY: As per HPI GASTROINTESTINAL: No diarrhea, no nausea, no vomiting, no abdominal pain. NEUROLOGICAL: No headaches, no weakness, no numbness. HEMATOLOGICAL: Denies any bleeding or petechiae. GENITOURINARY: Denies any burning micturition, frequency, or urgency. MUSCULOSKELETAL/RHEUMATOLOGICAL: Denies any joint pain, swelling, or any muscle pain. ENDOCRINE: Denies any polyuria or polydipsia. The rest of the 14-point review of systems is negative. Past Medical History Past Medical History: GERD/Reflux Additional Past Medical History / Comment(s): hx stomach ulcers, hx septal heart defect with surgery as child., Hernia. History of Any Multi-Drug Resistant Organisms: None Reported Past Surgical History: Hernia Repair Additional Past Surgical History / Comment(s): inguinal hernia, septal heart defect surgery as child. Past Anesthesia/Blood Transfusion Reactions: No Reported Reaction Past Psychological History: No Psychological Hx Reported Smoking Status: Former smoker Past Alcohol Use History: Occasional Past Drug Use History: None Reported - Past Family History Mother Family Medical History: No Reported History Medications and Allergies Home Medications Medication Instructions Recorded Confirmed Type Aspirin [Adult Low Dose Aspirin EC] 81 mg PO DAILY 03/09/20 08/24/20 History Atorvastatin [Lipitor] 40 mg PO DAILY 03/09/20 08/24/20 History Omeprazole 20 mg PO DAILY 03/09/20 08/24/20 History gemfibroziL [Lopid] 600 mg PO BID 03/09/20 08/24/20 History Ondansetron [Zofran ODT] 4 mg PO Q8HR PRN #10 tab 08/14/20 08/24/20 Rx Cyclobenzaprine [Flexeril] 5 - 10 mg PO HS PRN 08/20/20 08/24/20 History Losartan/Hydrochlorothiazide 1 tab PO DAILY 08/20/20 08/24/20 History [Losartan-Hctz 100-25 mg Tab] guaiFENesin-DM 600/30MG [Mucinex 2 tab PO Q12HR PRN 08/20/20 08/24/20 History Dm] Ibuprofen [Motrin Ib] 200 mg PO Q8H PRN 08/24/20 08/24/20 History Allergies Allergy/AdvReac Type Severity Reaction Status Date / Time No Known Allergies Allergy Verified 08/24/20 20:40 Physical Exam Vitals: Vital Signs Temp Pulse Resp BP Pulse Ox 08/25/20 10:37 104 H 18 125/92 92 L 08/25/20 08:00 98.9 F 08/25/20 06:20 97.9 F 85 20 135/86 93 L 08/25/20 04:56 86 19 128/81 91 L 08/25/20 02:39 93 16 08/25/20 01:37 98.6 F 85 14 123/86 93 L 08/24/20 22:14 100.0 F H 101 H 22 132/90 92 L 08/24/20 20:02 98.1 F 110 H 22 138/81 95 08/24/20 18:56 98.1 F 118 H 40 H 116/74 86 L PHYSICAL EXAMINATION: GENERAL: The patient is alert and oriented x3, not in any acute distress. Well developed, well nourished. Ill appearing HEENT: Pupils are round and equally reacting to light. EOMI. No scleral icterus. No conjunctival pallor. CARDIOVASCULAR: S1 and S2 present. Tachycardia PULMONARY: Fine crackles at the lower lung bases bilaterally. No wheezing ABDOMEN: Soft, nontender, nondistended, normoactive bowel sounds. No palpable organomegaly. MUSCULOSKELETAL: No joint swelling or deformity. EXTREMITIES: No cyanosis, clubbing, or pedal edema. NEUROLOGICAL: Gross neurological examination did not reveal any focal deficits. SKIN: No rashes. Results CBC & Chem 7: 08/24/20 18:58 08/24/20 18:58 Labs: Abnormal Lab Results - Last 24 Hours (Table) 08/24/20 08/24/20 08/24/20 Range/Units 18:58 18:58 18:58 WBC 11.1 H (3.8-10.6) k/uL Neutrophils # 9.7 H (1.3-7.7) k/uL Lymphocytes # 0.8 L (1.0-4.8) k/uL D-Dimer 1.20 H (<0.60) mg/L FEU Sodium 132 L (137-145) mmol/L Chloride 95 L (98-107) mmol/L BUN 28 H (9-20) mg/dL Glucose 134 H (74-99) mg/dL Calcium 8.1 L (8.4-10.2) mg/dL Ferritin 1451.3 H (22.0-322.0) ng/mL ALT 65 H (4-49) U/L Lactate Dehydrogenase 1678 H (313-618) U/L C-Reactive Protein 229.3 H (<10.0) mg/L Procalcitonin (0.02-0.09) ng/mL 08/24/20 Range/Units 18:58 WBC (3.8-10.6) k/uL Neutrophils # (1.3-7.7) k/uL Lymphocytes # (1.0-4.8) k/uL D-Dimer (<0.60) mg/L FEU Sodium (137-145) mmol/L Chloride (98-107) mmol/L BUN (9-20) mg/dL Glucose (74-99) mg/dL Calcium (8.4-10.2) mg/dL Ferritin (22.0-322.0) ng/mL ALT (4-49) U/L Lactate Dehydrogenase (313-618) U/L C-Reactive Protein (<10.0) mg/L Procalcitonin 0.60 H (0.02-0.09) ng/mL Assessment and Plan Assessment: ASSESSMENT Acute hypoxic respiratory failure secondary to pneumonia Hypertension Hyperlipidemia Increased inflammatory markers History of congenital heart disease, ASD s/p closure as a child GERD PLAN: Patient has a diagnosis of overt earlier this month, couple of years visits since then with normal chest x-ray. But this admission he was hypoxic and chest x-ray showing bilateral infiltrates so admitted for further management. He was started on steroids, Lovenox, zinc and vitamin C supplements. Continue with the current medication regimen. Patient's home medications have been reordered. Further recommendations to follow depending on the progress of the patient.
[2020-08-25] MEDS: ACETAMINOPHEN TAB 500 MG TAB PO PRN (19:08)
[2020-08-25] MEDS: DEXAMETHASONE SOD PHOSPHATE 10 MG/ML 1 ML VIAL IV SCH (20:48)
[2020-08-25] MEDS: CHOLECALCIFEROL 25 MCG (1000 IU) TABLET PO SCH (20:48)
[2020-08-25] MEDS: ENOXAPARIN 40 MG/0.4 ML SYRINGE SQ SCH (20:49)
[2020-08-25] MEDS ORDERED: REMDESIVIR 100 MG in SODIUM CHLORIDE 0.9% 250 ML IVPB SCH (22:00)
[2020-08-26] MEDS: ZINC SULFATE 220 MG CAP PO SCH ×2 (01:22→19:57)
[2020-08-26] MEDS: ALBUTEROL HFA INHALER INHALATION SCH ×3 (07:53→20:43)
[2020-08-26] MEDS: ASPIRIN 81 MG PO SCH (10:21)
[2020-08-26] MEDS: ATORVASTATIN 40 MG TAB PO SCH (10:21)
[2020-08-26] MEDS: FAMOTIDINE 20 MG TAB PO SCH ×2 (10:21→19:57)
[2020-08-26] MEDS: ASCORBIC ACID 500 MG TAB PO SCH ×2 (10:21→19:57)
[2020-08-26] MEDS: LOSARTAN-HCTZ 50-12.5 MG 1 EACH TAB PO SCH (11:00)
[2020-08-26 12:01] LABS: Basophils # (A) 0.01 X 10*3/uL (0.00-0.10); Basophils % (A) 0.1 %; Eosinophils # (A) 0.01 X 10*3/uL (0.04-0.35); Eosinophils % (A) 0.1 %; HCT 41.1 % (39.6-50.0); HGB 13.9 g/dL (13.0-17.0); Lymphocytes # (A) 0.75 X 10*3/uL (0.90-5.00); Lymphocytes % (A) 9.7 %; MCH 29.4 pg (27.0-32.0); MCHC 33.8 g/dL (32.0-37.0); MCV 87.1 fL (80.0-97.0); Mean Platelet Volume 13.5 fL (9.5-12.2); Monocytes # (A) 0.39 X 10*3/uL (0.20-1.00); Monocytes % (A) 5.1 %; Neutrophils # (A) 6.48 X 10*3/uL (1.80-7.70); Platelet Count 296 X 10*3/uL (140-440); RBC 4.72 X 10*6/uL (4.40-5.60); RDW 13.4 % (11.5-14.5); WBC 7.72 X 10*3/uL (4.50-10.00)
--- NOTE | 2020-08-26 12:21 | P.PN ---
Subjective Progress Note Date: 08/26/20 44-year-old male patient who came into the emergency department today because of worsening shortness of breath. He was diagnosed having covid 19 on 08/14/2020. At that time patient came into the emergency with cough, fever, body aches, and symptoms were going on for couple of days and the patient was having dry persistent cough and he had lost his taste and smell. His temperature was as high as 102 and was taking ibuprofen which was helping. Denied having any significant shortness of breath. No history of smoking. 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 He also has history of hypertension and hyp erlipidemia. He was in the emergency on 08/20/2020 complaining of fatigue and some degree of shortness of breath. He denies having any chest pain. No altered mentation. No syncope. No nausea or vomiting or abdominal pain. Patient was seen by emergency department physician the patient was given monoclonal antibodies (BAM) and the patient was discharged home. The patient came back today again to the emergency room because of worsening shortness of breath. The patient was hypoxic with pulse ox in the low 80s on room in oxygen. Chest x-ray showed diffuse but the pulmonary infiltrates but also present on the earlier chest x-ray on 08/20/2020 and there were absent on the initial chest x-ray that was done on 08/14/2020. The patient is currently on 2 L by nasal cannula with a pulse ox of 95%. Initial pulse ox was 86% on room air oxygen. The patient has d-dimer of 1.2. Sodium is at 132 with a chloride of 95. Platelet count is 253. The patient also had a LDH level of 1678 with a CRP of 229 and mild transaminitis with an AST of 50, LDL of 65 and a bilirubin of 1.0. Glucose is 134. 08/26/2020, I'm seeing the patient on a follow-up. The patient is doing well. No specific complaints. Sit on 3 L about 2 by nasal cannula. No worsening in the breathing over the past 24 hours. The patient is on Decadron for now. No fever. No chills. No chest pain. No other significant events. The mental status is appropriate. D-dimer is at 1.21. The white cell count is at 7.7 with a hemoglobin is 13.9. Objective - Vital Signs Vital signs: Vital Signs Temp 99.2 F 08/26/20 11:00 Pulse 93 08/26/20 11:00 Resp 23 08/26/20 11:00 BP 158/89 08/26/20 11:00 Pulse Ox 92 L 08/26/20 11:00 Intake & Output 08/25/20 08/26/20 08/26/20 18:59 06:59 18:59 Weight 122.47 kg - Exam GENERAL: Patient is well-developed and well-nourished. Patient is nontoxic and well- hydrated and is in mild distress. the patient is currently on a liters of oxygen by nasal cannula ENT: Neck is soft and supple. No significant lymphadenopathy is noted. Oropharynx is clear. Moist mucous membranes. Neck has full range of motion without eliciting any pain. EYES: The sclera were anicteric and conjunctiva were pink and moist. Extraocular movements were intact and pupils were equal round and reactive to light. Eyelids were unremarkable. PULMONARY: Unlabored respirations. Good breath sounds bilaterally. there are crackles in lung bases bilaterally. CARDIOVASCULAR: There is a regular rate and rhythm without any murmurs gallops or rubs. ABDOMEN: Soft and nontender with normal bowel sounds. SKIN: Skin is clear with no lesions or rashes and otherwise unremarkable. NEUROLOGIC: Patient is alert and oriented x3. Cranial nerves II through XII are grossly intact. Motor and sensory are also intact. Normal speech, volume and content. Symmetrical smile. MUSCULOSKELETAL: Normal extremities with adequate strength and full range of motion. No lower ex tremity swelling or edema. No calf tenderness. LYMPHATICS: No significant lymphadenopathy is noted PSYCHIATRIC: Normal psychiatric evaluation. - Labs CBC & Chem 7: 08/26/20 07:18 08/24/20 18:58 Labs: Abnormal Lab Results - Last 24 Hours (Table) 08/26/20 08/26/20 Range/Units 07:18 07:18 MPV 13.5 H (9.5-12.2) fL Immature Gran # 0.08 H (0.00-0.04) X 10*3/uL Lymphocytes # 0.75 L (0.90-5.00) X 10*3/uL Eosinophils # 0.01 L (0.04-0.35) X 10*3/uL D-Dimer 1.21 H (<0.60) mg/L FEU Microbiology - Last 24 Hours (Table) 08/24/20 19:14 Blood Culture - Preliminary Blood No Growth after 24 hours 08/24/20 18:58 Blood Culture - Preliminary Blood No Growth after 24 hours Assessment and Plan Plan: 1 acute covert 19-related pneumonia with diffuse bilateral pulmonary infiltrates and secondary shortness of breath and hypoxemia, the patient's diagnosis established on 08/14/2020. At that time the patient was seen in the hospital emergency department and the patient had a normal chest x-ray. He was seen ag n the emergency on 08/20/2020 and I think he was given monoclonal antibiotics and he was discharged home. Subsequently, the patient presents back to the ED with worsening shortness of breath. Inflammatory markers are elevated with LDH and CRP levels being quite high. Recurrent d-dimer is at 1.2 2 acute hypoxic respiratory failure currently on 2 L oxygen by nasal cannula 3 History of congenital heart disease, possibly ASD with surgical closure. The patient has a thoracotomy scar 4 hypertension 5 hyperlipidemia 6 history of peptic ulcer disease and acid reflux Plan Decadron 6 mg on a daily basis IV Lovenox 40 mg Subcutaneously every 24 hours for DVT prophylaxis Out of the window for Remdesivir. monitor inflammatory markers Monitor the oxygenation, currently on 3 L Admit the patient to the hospital and will continue to follow.
[2020-08-26] MEDS: ACETAMINOPHEN TAB 500 MG TAB PO PRN (13:01)
[2020-08-26 14:09] LABS: African American GFR (CKD) 119.1 (60.0-200.0); Anion Gap 15.1 mmol/L (4.00-12.00); BUN/Creat Ratio 28.89 Ratio (12.00-20.00); Calcium 8.8 mg/dL (8.7-10.3); Carbon Dioxide 23.9 mmol/L (21.6-31.8); Non-African American GFR(CKD) 102.8 (60.0-200.0); Potassium 4.2 mmol/L (3.5-5.5)
[2020-08-26] MEDS: DEXAMETHASONE SOD PHOSPHATE 10 MG/ML 1 ML VIAL IV SCH (19:58)
[2020-08-26] MEDS: CHOLECALCIFEROL 25 MCG (1000 IU) TABLET PO SCH (19:58)
[2020-08-26] MEDS: ENOXAPARIN 40 MG/0.4 ML SYRINGE SQ SCH (19:58)
--- NOTE | 2020-08-27 00:05 | P.PN ---
Subjective Progress Note Date: 08/26/20 Principal diagnosis: COVID Pneumonia Mr. Robbins is a 44-year-old male with a past medical history of hypertension, GERD, congenital atrial septal defect fixed status post surgery as a child coming in to the emergency department with a chief complaint of difficulty in b reathing. Patient states that he was diagnosed with covid 19 on the of this month. He states all his household members have been tested positive. Since then he had couple of ER visits on 08/14 and 08/20 for ongoing shortness of breath. He was given monoclonal antibodies and discharged home. Patient has history of atrial septal defect and was corrected with surgery when he was a child. Today when the patient came into the ER he was having more difficulty in breathing and his pulse ox at the time of admission was 86 on room air. He was also tachycardic and had a fever of 100. The patient had a chest x-ray showing diffuse pulmonary infiltrates. So the patient was admitted for further management. In the ER patient had blood work done showing white count of 11.1, hemoglobin 15.4, platelets 253. D-dimer 1.20, sodium 132, potassium 3.5, chloride 95, Bicarb 27, BNP 28, creatinine 1.19. Inflammatory markers, ferritin 1451, CRP 229, pro calcitonin 0.60, LDH 1678. He had an EKG showing sinus tachycardia. Patient also got CTA of the chest showing bilateral diffuse patchy groundglass opacities compatible with Covid pneumonia. On 08/26/2020 - Patient was seen and examined at bedside, still in the ER. Patient states his breathing is slightly better compared to yesterday. He still continues to have cough mostly dry. Patient denies having any fevers chills or rigors. No chest pain or palpitations. No abdominal pain nausea vomiting or diarrhea no dysuria or hematuria. On reviewing the vitals temperature of 98.9, heart rate 90s 200s, respiratory rate 18-20, blood pressure 148 x 78, saturating at 90% on 3 L of oxygen. On reviewing the labs white count of 7.7, hemoglobin 13.9, platelets adequate, D-dimer 1.21, sodium 136, potassium 4.2, chloride 97, bicarb 23, BUN 26, creatinine 0.9. Active Medications Acetaminophen (Acetaminophen Tab 500 Mg Tab) 1,000 mg PO Q6HR PRN PRN Reason: Fever>101 Last Admin: 08/26/20 13:01 Dose: 1,000 mg Documented by: Albuterol Sulfate (Albuterol Hfa Inhaler) 2 puff INHALATION TID [facility] Last Admin: 08/26/20 20:43 Dose: 2 puff Documented by: Ascorbic Acid (Ascorbic Acid 500 Mg Tab) 500 mg PO BID [facility] Last Admin: 08/26/20 19:57 Dose: 500 mg Documented by: Aspirin (Aspirin 81 Mg) 81 mg PO DAILY [facility] Last Admin: 08/26/20 10:21 Dose: 81 mg Documented by: Atorvastatin Calcium (Atorvastatin 40 Mg Tab) 40 mg PO DAILY [facility] Last Admin: 08/26/20 10:21 Dose: 40 mg Documented by: Cholecalciferol (Cholecalciferol 25 Mcg (1000 Iu) Tablet) 125 mcg PO HS [facility] Last Admin: 08/26/20 19:58 Dose: 125 mcg Documented by: Dexamethasone Sodium Phosphate (Dexamethasone Sod Phosphate 10 Mg/Ml 1 Ml Vial) 6 mg IV HS [facility] Last Admin: 08/26/20 19:58 Dose: 6 mg Documented by: Enoxaparin Sodium (Enoxaparin 40 Mg/0.4 Ml Syringe) 40 mg SQ HS [facility] Last Admin: 08/26/20 19:58 Dose: 40 mg Documented by: Famotidine (Famotidine 20 Mg Tab) 20 mg PO BID [facility] Last Admin: 08/26/20 19:57 Dose: 20 mg Documented by: HCTZ/Losartan Potassium (Losartan-Hctz 50-12.5 Mg 1 Each Tab) 2 each PO DAILY [facility] Last Admin: 08/26/20 11:00 Dose: 2 each Documented by: Naloxone HCl (Naloxone 0.4 Mg/Ml 1 Ml Vial) 0.2 mg IV Q2M PRN PRN Reason: Opioid Reversal Zinc Sulfate (Zinc Sulfate 220 Mg Cap) 220 mg PO [facility] Last Admin: 08/26/20 19:57 Dose: 220 mg Documented by: Objective - Vital Signs Vital signs: Vital Signs Temp 99.2 F 08/26/20 11:00 Pulse 93 08/26/20 11:00 Resp 23 08/26/20 11:00 BP 158/89 08/26/20 11:00 Pulse Ox 92 L 08/26/20 11:00 - Exam PHYSICAL EXAMINATION: GENERAL: The patient is alert and oriented x3, not in any acute distress. Well developed, well nourished. HEENT: Pupils are round and equally reacting to light. EOMI. No scleral icterus. No conjunctival pallor. CARDIOVASCULAR: S1 and S2 present. Tachycardia PULMONARY: Fine crackles at the lower lung bases bilaterally. No wheezing ABDOMEN: Soft, nontender, nondistended, normoactive bowel sounds. No palpable organomegaly. MUSCULOSKELETAL: No joint swelling or deformity. EXTREMITIES: No cyanosis, clubbing, or pedal edema. NEUROLOGICAL: Gross neurological examination did not reveal any focal deficits. SKIN: No rashes. - Labs CBC & Chem 7: 08/26/20 07:18 08/26/20 07:17 Labs: Abnormal Lab Results - Last 24 Hours (Table) 08/26/20 Range/Units 07:18 D-Dimer 1.21 H (<0.60) mg/L FEU Microbiology - Last 24 Hours (Table) 08/24/20 19:14 Blood Culture - Preliminary Blood No Growth after 24 hours 08/24/20 18:58 Blood Culture - Preliminary Blood No Growth after 24 hours Assessment and Plan Assessment: ASSESSMENT Acute hypoxic respiratory failure secondary to pneumonia Hypertension Hyperlipidemia Increased inflammatory markers History of congenital heart disease, ASD s/p closure as a child GERD PLAN:Patient is still requiring 3 L of oxygen and saturating around 90s. Patient to be continued on Decadron, Lovenox, vitamin C, zinc continue with tiki athing treatments. Overall patient states that his respiration has improved. Will monitor a.m. labs. Continue with the current medication regimen. Further recommendations to follow depending on the progress of the patient.
[2020-08-27] MEDS: ASCORBIC ACID 500 MG TAB PO SCH (07:33)
[2020-08-27] MEDS: ASPIRIN 81 MG PO SCH (07:33)
[2020-08-27] MEDS: ATORVASTATIN 40 MG TAB PO SCH (07:33)
[2020-08-27] MEDS: LOSARTAN-HCTZ 50-12.5 MG 1 EACH TAB PO SCH (07:33)
[2020-08-27] MEDS: FAMOTIDINE 20 MG TAB PO SCH (07:33)
[2020-08-27] MEDS: ALBUTEROL HFA INHALER INHALATION SCH ×2 (08:34→11:59)
[2020-08-27 09:42] LABS: Basophils # (A) 0.01 X 10*3/uL (0.00-0.10); Basophils % (A) 0.1 %; Eosinophils # (A) 0 X 10*3/uL (0.04-0.35); Eosinophils % (A) 0 %; HCT 40.2 % (39.6-50.0); HGB 13.5 g/dL (13.0-17.0); Lymphocytes # (A) 0.68 X 10*3/uL (0.90-5.00); MCH 29.5 pg (27.0-32.0); MCHC 33.6 g/dL (32.0-37.0); MCV 87.8 fL (80.0-97.0); Mean Platelet Volume 13.3 fL (9.5-12.2); Monocytes # (A) 0.39 X 10*3/uL (0.20-1.00); Monocytes % (A) 5.7 %; Neutrophils # (A) 5.68 X 10*3/uL (1.80-7.70); Neutrophils % (A) 83.5 %; Platelet Count 322 X 10*3/uL (140-440); RBC 4.58 X 10*6/uL (4.40-5.60); RDW 13.5 % (11.5-14.5); WBC 6.81 X 10*3/uL (4.50-10.00)
[2020-08-27 09:52] LABS: African American GFR (CKD) 104.9 (60.0-200.0); Anion Gap 9.7 mmol/L (4.00-12.00); Calcium 9.2 mg/dL (8.7-10.3); Carbon Dioxide 28.3 mmol/L (21.6-31.8); Non-African American GFR(CKD) 90.5 (60.0-200.0); Potassium 4.2 mmol/L (3.5-5.5)
--- NOTE | 2020-08-27 14:26 | P.PN ---
Subjective Progress Note Date: 08/27/20 44-year-old male patient who came into the emergency department today because of worsening shortness of breath. He was diagnosed having covid 19 on 08/14/2020. At that time patient came into the emergency with cough, fever, body aches, and symptoms were going on for couple of days and the patient was having dry persistent cough and he had lost his taste and smell. His temperature was as high as 102 and was taking ibuprofen which was helping. Denied having any significant shortness of breath. No history of smoking. 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 He also has history of hypertension and hyper lipidemia. He was in the emergency on 08/20/2020 complaining of fatigue and some degree of shortness of breath. He denies having any chest pain. No altered mentation. No syncope. No nausea or vomiting or abdominal pain. Patient was seen by emergency department physician the patient was given m onoclonal antibodies (BAM) and the patient was discharged home. The patient came back today again to the emergency room because of worsening shortness of breath. The patient was hypoxic with pulse ox in the low 80s on room in oxygen. Chest x-ray showed diffuse but the pulmonary infiltrates but also present on the earlier chest x-ray on 08/20/2020 and there were absent on the initial chest x-ray that was done on 08/14/2020. The patient is currently on 2 L by nasal cannula with a pulse ox of 95%. Initial pulse ox was 86% on room air oxygen. The patient has d-dimer of 1.2. Sodium is at 132 with a chloride of 95. Platelet count is 253. The patient also had a LDH level of 1678 with a CRP of 229 and mild transaminitis with an AST of 50, LDL of 65 and a bilirubin of 1.0. Glucose is 134. 08/26/2020, I'm seeing the patient on a follow-up. The patient is doing well. No specific complaints. Sit on 3 L about 2 by nasal cannula. No worsening in the breathing over the past 24 hours. The patient is on Decadron for now. No fever. No chills. No chest pain. No other significant events. The mental status is appropriate. D-dimer is at 1.21. The white cell count is at 7.7 with a hemoglobin is 13.9. On 08/27/2020 patient seen in follow-up on medical surgical floor, he is sitting up in the recliner he is on 3 L of oxygen pulse ox is between 91-94%, his been afebrile, vital signs have been stable, he is breathing comfortably right now, no significant cough, no compressive chest discomfort. He remains on IV Decadron 6 mg daily, remains on prophylactic Lovenox, and vitamin cocktail, no worsening symptoms of dyspnea or hypoxia, today's labs have been reviewed, d- dimer is 1.6, he is LDH is improving and is down to 373, CRP is pending. His pro calcitonin level is 0.42, down from 0.60 on yesterday's labs with cultures have been negative Objective - Vital Signs Vital signs: Vital Signs Temp 98.6 F 08/27/20 10:06 Pulse 92 08/27/20 10:06 Resp 20 08/27/20 10:06 BP 119/72 08/27/20 10:06 Pulse Ox 91 L 08/27/20 10:06 Intake & Output 08/26/20 08/27/20 08/27/20 18:59 06:59 18:59 Intake Total 200 Balance 200 Weight 122.47 kg Intake: Oral 200 Other: # Voids 2 - Exam GENERAL EXAM: Alert, very pleasant, 44-year-old white male, on 3 L of oxygen pulse ox between 91-94% comfortable in no apparent distress. HEAD: Normocephalic/atraumatic. EYES: Normal reaction of pupils, equal size. Conjunctiva pink, sclera white. NOSE: Clear with pink turbinates. THROAT: No erythema or exudates. NECK: No masses, no JVD, no thyroid enlargement, no adenopathy. CHEST: No chest wall deformity. Symmetrical expansion. LUNGS: Equal air entry with no crackles, wheeze, rhonchi or dullness. CVS: Regular rate and rhythm, normal S1 and S2, no gallops, no murmurs, no rubs ABDOMEN: Soft, nontender. No hepatosplenomegaly, normal bowel sounds, no guarding or rigidity. EXTREMITIES: No clubbing, no edema, no cyanosis, 2+ pulses and upper and lower extremities. MUSCULOSKELETAL: Muscle strength and tone normal. SPINE: No scoliosis or deformity SKIN: No rashes CENTRAL NERVOUS SYSTEM: Alert and oriented -3. No focal deficits, tone is normal in all 4 extremities. PSYCHIATRIC: Alert and oriented -3. Appropriate affect. Intact judgment and insight. - Labs CBC & Chem 7: 08/27/20 06:08 08/27/20 06:08 Labs: Abnormal Lab Results - Last 24 Hours (Table) 08/26/20 08/26/20 08/27/20 Range/Units 07:17 07:18 06:08 MPV 13.3 H (9.5-12.2) fL Immature Gran # 0.05 H (0.00-0.04) X 10*3/uL Lymphocytes # 0.68 L (0.90-5.00) X 10*3/uL Eosinophils # 0 L (0.04-0.35) X 10*3/uL D-Dimer (<0.60) mg/L FEU BUN/Creatinine Ratio (12.00-20.00) Ratio Glucose (70-110) mg/dL Lactate Dehydrogenase (120-246) U/L C-Reactive Protein 13.0 H (0.0-0.8) mg/dL Procalcitonin 0.42 H (0.02-0.09) ng/mL 08/27/20 08/27/20 Range/Units 06:08 06:08 MPV (9.5-12.2) fL Immature Gran # (0.00-0.04) X 10*3/uL Lymphocytes # (0.90-5.00) X 10*3/uL Eosinophils # (0.04-0.35) X 10*3/uL D-Dimer 1.60 H (<0.60) mg/L FEU BUN/Creatinine Ratio 26.00 H (12.00-20.00) Ratio Glucose 138 H (70-110) mg/dL Lactate Dehydrogenase 373 H (120-246) U/L C-Reactive Protein (0.0-0.8) mg/dL Procalcitonin (0.02-0.09) ng/mL Microbiology - Last 24 Hours (Table) 08/24/20 19:14 Blood Culture - Preliminary Blood No Growth after 48 hours 08/24/20 18:58 Blood Culture - Preliminary Blood No Growth after 48 hours Assessment and Plan Plan: Assessment: 1 acute covert 19-related pneumonia with diffuse bilateral pulmonary infiltrates and secondary shortness of breath and hypoxemia, the patient's diagnosis established on 08/14/2020. At that time the patient was seen in the hospital e mergency department and the patient had a normal chest x-ray. He was seen again the emergency on 08/20/2020 and I think he was given monoclonal antibiotics and he was discharged home. Subsequently, the patient presents back to the ED with worsening shortness of breath. Inflammatory markers are elevated with LDH and CRP levels being quite high. Recurrent d-dimer is at 1.2 2 acute hypoxic respiratory failure currently on 2 L oxygen by nasal cannula 3 History of congenital heart disease, possibly ASD with surgical closure. The patient has a thoracotomy scar 4 hypertension 5 hyperlipidemia 6 history of peptic ulcer disease and acid reflux Plan: Patient is doing well, no worsening dyspnea, home oxygen assessment was done, and patient remained above 90% on room air at rest, no significant cough, no complaints of chest pain, no fever or chills, vital signs are stable, no altered mentation, patient was out of the window for Remdesivir, he has been treated with IV steroids, prophylactic anticoagulation, and vitamins, he is improving, on her perspective she can be considered for discharge home today to complete oral course of Decadron for a total of 10 days, he will need to be seen in follow-up in the office in [address] Bazzi for repeat chest x-ray and follow-up. I performed a history & physical examination of the patient and discussed their management with my nurse practitioner, Mary Marshall. I reviewed the nurse practitioner's note and agree with the documented findings and plan of care. Lung sounds are positive for dim breath sounds The findings and the impression was discussed with the patient. I attest to the documentation by the nurse practitioner. Time with Patient: Less than 30
[2020-08-27 14:37] VITALS: BMI 36.6
[2020-08-27 15:09] VITALS: BP 118/76; PULSE 99; RESP 16; TEMP 98.3
--- NOTE | 2020-08-28 16:42 | P.DS ---
Providers Date of admission: 08/24/20 20:48 Expected date of discharge: 08/27/20 Attending physician: Jose Luis Monzon Consults: 08/24/20 20:39 Consult Physician Urgent Consulting Provider: Dora Bazzi Consult Reason/Comments: covid Do you want consulting provider notified?: Already Contacted Primary care physician: Luis Lund MD Hospital Course: HPI - Mr. Robbins is a 44-year-old male with a past medical history of hypertension, GERD, congenital atrial septal defect fixed status post surgery as a child coming in to the emergency department with a chief complaint of dif ficulty in breathing. Patient states that he was diagnosed with covid 19 on the of this month. He states all his household members have been tested positive. Since then he had couple of ER visits on 08/14 and 08/20 for ongoing shortness of breath. He was given monoclonal antibodies and discharged home. Patient has history of atrial septal defect and was corrected with surgery when he was a child. Today when the patient came into the ER he was having more difficulty in breathing and his pulse ox at the time of admission was 86 on room air. He was also tachycardic and had a fever of 100. The patient had a chest x-ray showing diffuse pulmonary infiltrates. So the patient was admitted for further management. In the ER patient had blood work done showing white count of 11.1, hemoglobin 15.4, platelets 253. D-dimer 1.20, sodium 132, potassium 3.5, chloride 95, Bicarb 27, BNP 28, creatinine 1.19. Inflammatory markers, ferritin 1451, CRP 229, pro calcitonin 0.60, LDH 1678. He had an EKG showing sinus tachycardia. Patient also got CTA of the chest showing bilateral diffuse patchy groundglass opacities compatible with Covid pneumonia. Hospital course - patient received Decadron, Lovenox, Singulair and vitamin C supplements during the hospital course. His breathing status has improved significantly. His inflammatory markers have been trending down. Patient's oxygen saturation remained above 90% on room air. He was followed by pulmonary and cleared for discharge to complete 10 days of steroids total. He is also advised to follow-up with his primary care physician and pulmonary Dr. Bazzi. PHYSICAL EXAM Vitals at the time of discharge; temperature 98.3, heart rate 99, respiratory rate 16, blood pressure 1 18 x 76, saturating at 91% on room air. GENERAL: The patient is alert and oriented x3, not in any acute distress. Well developed, well nourished. HEENT: Pupils are round and equally reacting to light. EOMI. No scleral icterus. No conjunctival pallor. CARDIOVASCULAR: S1 and S2 present. Tachycardia PULMONARY: Breath sounds positive bilaterally, clear. No crackles No wheezing. ABDOMEN: Soft, nontender, nondistended, normoactive bowel sounds. No palpable organomegaly. MUSCULOSKELETAL: No joint swelling or deformity. EXTREMITIES: No cyanosis, clubbing, or pedal edema. NEUROLOGICAL: Gross neurological examination did not reveal any focal deficits. SKIN: No rashes. DISCHARGE DIAGNOSIS Acute hypoxic respiratory failure secondary to pneumonia Hypertension Hyperlipidemia Increased inflammatory markers History of congenital heart disease, ASD s/p closure as a child GERD Follow-up: Patient is advised to complete his course of steroids with oral Decadron. He is advised to follow-up with his primary care physician in 2-[address] Bazzi in 1 week. Patient Condition at Discharge: Fair Plan - Discharge Summary Discharge Rx Participant: No New Discharge Prescriptions: New Dexamethasone [Decadron] 6 mg PO DAILY 7 Days #7 tablet Zinc Sulfate [Orazinc] 220 mg PO HS #15 cap Ascorbic Acid [Vitamin C] 500 mg PO BID #15 tab Cholecalciferol [Vitamin D3 (25 Mcg = 1000 Iu)] 125 mcg PO HS #15 tablet Continue gemfibroziL [Lopid] 600 mg PO BID Atorvastatin [Lipitor] 40 mg PO DAILY Omeprazole 20 mg PO DAILY Aspirin [Adult Low Dose Aspirin EC] 81 mg PO DAILY Ondansetron [Zofran ODT] 4 mg PO Q8HR PRN #10 tab PRN Reason: Nausea Losartan/Hydrochlorothiazide [Losartan-Hctz 100-25 mg Tab] 1 tab PO DAILY Cyclobenzaprine [Flexeril] 5 - 10 mg PO HS PRN PRN Reason: Muscle Spasm guaiFENesin-DM 600/30MG [Mucinex Dm] 2 tab PO Q12HR PRN PRN Reason: Cough Discontinued Ibuprofen [Motrin Ib] 200 mg PO Q8H PRN PRN Reason: Pain Or Fever > 100.5 Discharge Medication List Aspirin [Adult Low Dose Aspirin EC] 81 mg PO DAILY 03/09/20 [History] Atorvastatin [Lipitor] 40 mg PO DAILY 10/05/20 [History] Omeprazole 20 mg PO DAILY 03/09/20 [History] gemfibroziL [Lopid] 600 mg PO BID 03/09/20 [History] Ondansetron [Zofran ODT] 4 mg PO Q8HR PRN #10 tab 08/14/20 [Rx] Cyclobenzaprine [Flexeril] 5 - 10 mg PO HS PRN 08/20/20 [History] Losartan/Hydrochlorothiazide [Losartan-Hctz 100-25 mg Tab] 1 tab PO DAILY 08/20/20 [History] guaiFENesin-DM 600/30MG [Mucinex Dm] 2 tab PO Q12HR PRN 08/20/20 [History] Ascorbic Acid [Vitamin C] 500 mg PO BID #15 tab 08/27/20 [Rx] Cholecalciferol [Vitamin D3 (25 Mcg = 1000 Iu)] 125 mcg PO HS #15 tablet 08/27/20 [Rx] Dexamethasone [Decadron] 6 mg PO DAILY 7 Days #7 tablet 08/27/20 [Rx] Zinc Sulfate [Orazinc] 220 mg PO HS #15 cap 08/27/20 [Rx] Follow up Appointment(s)/Referral(s): Luis Lund MD [Primary Care Provider] - 09/02/20 10:30 am (This is a tele health visit not in office, they will send you the information before your appointment) Dora Bazzi MD [STAFF PHYSICIAN] - 09/25/20 10:15 am Patient Instructions/Handouts: Coronavirus Disease 2019 (COVID-19) Discharge Disposition: HOME SELF-CARE
== END 2020-08-27 18:19 | disposition home or self-care (01) | DRG 177 ==
LOC: EC 18:51 → 4SSUR 20:48
PROVIDERS: ADMIT Hospitalist; ATTEND Hospitalist
DX: U07.1 COVID-19 (principal); J12.82 Pneumonia due to coronavirus disease 2019; J96.01 Acute respiratory failure with hypoxia; K21.9 Gastro-esophageal reflux disease without esophagitis; R00.0 Tachycardia, unspecified; I10 Essential (primary) hypertension; E78.5 Hyperlipidemia, unspecified; R74.01 Elevation of levels of liver transaminase levels; Z71.3 Dietary counseling and surveillance; Z79.82 Long term (current) use of aspirin; Z79.899 Other long term (current) drug therapy; Z87.11 Personal history of peptic ulcer disease; Z98.890 Other specified postprocedural states; Z87.891 Personal history of nicotine dependence; Z87.74 Personal history of (corrected) congenital malformations of heart and circulatory system
CPT/HCPCS: 36415; 71045; 71275; 80048; 80053; 82728; 83605; 83615; 83735; 84145; 85025; 85379; 85610; 85730; 86140; 87040; 93005; 94640; 96361; 96372; 96374; 96376; 99291

== ENCOUNTER → 2020-09-29 | Outpatient (CLI) | payer BC ==
[2020-09-29 18:49] LABS: African American GFR (CKD) 104.9 (60.0-200.0); Albumin 4.7 g/dL (3.80-4.90); Albumin/Globulin Ratio 2.04 (1.60-3.17); Anion Gap 10.3 mmol/L (4.00-12.00); Calcium 9.4 mg/dL (8.7-10.3); Carbon Dioxide 29.7 mmol/L (21.6-31.8); Chol/HDL Ratio 7.29; Globulin 2.3 g/dL (1.6-3.3); LDL Cholesterol,Calculated 124.8 mg/dL (0.0-131.0); Non-African American GFR(CKD) 90.5 (60.0-200.0); Potassium 4.1 mmol/L (3.5-5.5); Total Bilirubin 0.6 mg/dL (0.2-1.2); VLDL Calculation 70.2 mg/dL (5.00-40.00)
== END | disposition home or self-care (01) ==
LOC: LABWHC1 08:56
PROVIDERS: ATTEND Internal Medicine Interventional Cardiology
DX: E78.2 Mixed hyperlipidemia (principal)
CPT/HCPCS: 36415; 80053; 80061

== ENCOUNTER → 2020-11-09 | Outpatient (CLI) | payer BC ==
--- NOTE | 2020-11-09 14:13 | XR ---
EXAMINATION TYPE: XR chest 2V DATE OF EXAM: 11/09/2020 COMPARISON: 09/25/2020 HISTORY: 44-year-old male pneumonia due to sores associated coronal virus, shortness of breath on exe rtion. TECHNIQUE: Frontal and lateral views FINDINGS: Median sternotomy wires are present. Heart normal size. Mild interstitial density remains throughout. The more patchy peripheral densities seen on 09/25/2020 have shown some improvement. No new consolida tion or pleural effusion. IMPRESSION: Some residual interstitial changes remain. There could be the development of some underlying scarring . No new or progressive infiltrate.
== END | disposition home or self-care (01) ==
LOC: RADXRMAIN 12:19
PROVIDERS: ATTEND Family Medicine
DX: R91.8 Other nonspecific abnormal finding of lung field (principal)
CPT/HCPCS: 71046

== ENCOUNTER → 2024-03-11 | Outpatient (CLI) | payer OTHER ==
--- NOTE | 2024-03-18 22:55 | P.PCN ---
Date of Procedure: 03/11/24 Operative Findings: Home sleep study testing Date of service is 03/11/2024 Pertinent history This is a 48-year-old male patient with loud snoring, without any major hypersomnia or sleepiness. The patient has an [place] score of 4. The patient has a body mass index of 35 and has lost weight over the past 1 year. 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 The patient was referred to me for sleep apnea evaluation. His comorbid conditions include hypertension, hyperlipidemia and obesity Pertinent physical findings The patient's height is 6 feet, weight is 256 pounds with a body mass index of 35 Technical description The [employer] Apnea[employer] system was used to complete his home sleep study. This is a type III home sleep study evaluation. The total recording duration was 7 hours and 15 minutes. The study started at 914 p.m. and ended at 4:30 AM. There was a total of 5 hours and 59 minutes of flow monitoring and 7 hours and 4 minutes of oxygen saturation monitoring Results Respiratory analysis showed a total of 154 obstructive apneas and 266 obstructive hypopneas. The resulting AHI was 70 Oxygenation analysis The patient's baseline pulse ox while awake was 95% on room air oxygen. Average pulse ox during sleep was 89% and the minimum pulse ox of 67% and the patient spent approximately 2 hours of 55 minutes of the sleep below pulse ox of 89%. 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 The patient will be asked to continue his efforts to lose weight. Obviously with the severity of his sleep apnea, he will need CPAP therapy and the patient will be asked to come into the sleep center to undergo a CPAP titration.
== END ==
LOC: 3 N SLEEP 13:00
PROVIDERS: ATTEND Internal Medicine Critical Care Medicine